=== PATIENT | female | born 1975 | race Caucasian/White ===

== ENCOUNTER 2017-04-02 20:34 | Observation (INO) ==
--- NOTE | 2017-04-02 21:24 | Emergency Department Note ---
Disposition Clinical Impression: Chest pain Qualifiers: Chest pain type: unspecified Qualified Code(s): R07.9 - Chest pain, unspecified Dyspnea Qualifiers: Dyspnea type: unspecified Qualified Code(s): R06.00 - Dyspnea, unspecified Disposition: Admitted As Inpatient Condition: Good Referrals: Melissa Swift DO [Primary Care Provider] - Forms: ED Satisfaction Letter Time of Disposition: 23:20 Chest Pain HPI - General Chief Complaint: ED Chest Pain Stated Complaint: Chest Pain Time Seen by Provider: 04/02/17 21:12 Source: patient Mode of arrival: ambulatory Limitations: no limitations Vital Signs Reviewed: Yes Nursing Notes Reviewed: Yes - History of Present Illness HPI Narrative: Patient is a 41-year-old female with past medical history of NM, 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 She presents today due to chest pain, nasal congestion, cough, shortness of breath. She also had 1 episode of nonbloody, non-bilious vomiting prior to arrival. She states that the chest discomfort is in the center of her chest and left- sided as well. Describes it as a dull ache that is worse with coughing, worse with deep inspiration. Denies any known fevers, abdominal discomfort, hematuria , dysuria, vaginal bleeding or discharge. She does note mild rash/redness of the left calf over the past couple days that has since resolved. Denies any calf pain or any swelling of the lower extremities. Denies any history of blood clots or pulmonary emboli. Severity scale (1-10): 8 - Related Data Previous Rx's Medication Instructions Recorded HYDROcodone/Acet 5/325 mg [[place] 1 - 2 tab PO Q6H PRN #10 tab 03/01/17 5-325 mg] Allergies Allergy/AdvReac Type Severity Reaction Status Date / Time aspirin Allergy See Verified 03/01/17 21:13 Comments Penicillins Allergy See Verified 03/01/17 21:13 Comments All systems ED: reviewed and negative except as stated. Constitutional: Denies: fever ENT ED: Reports: congestion. Denies: throat pain, dysphagia Cardiovascular: Reports: chest pain Respiratory: Reports: cough, dyspnea Gastrointestinal: Reports: nausea, vomiting. Denies: abdominal pain, diarrhea, constipation, hematemesis, melena, hematochezia Chest Pain PMH - Past Medical History Medical history: Reports: diabetes, hypertension, myocardial infarction, thyroid disease Surgical history: Reports: non-contributory Psychiatric history: Reports: no psych history - Social History Smoking Status: Current every day smoker Alcohol use: Reports: occasionally Drug use: Reports: none Physical Exam - General Limitations: no limitations General appearance: alert, in no apparent distress - Head Head exam: atraumatic, normocephalic, normal inspection - Eye Eye exam: Present: normal appearance, PERRL, EOMI - ENT ENT exam: normal exam, normal oropharynx, mucous membranes moist - Neck Neck exam: Present: normal inspection, full ROM, trachea midline - Chest Chest inspection: Present: normal inspection, symmetric chest wall rise - Respiratory Respiratory exam: Present: normal lung sounds bilaterally. Absent: respiratory distress, wheezes, stridor, accessory muscle use, prolonged expiratory phase - Cardiovascular Cardiovascular exam: Present: regular rate, normal rhythm, normal heart sounds - Abdominal Exam Abdominal exam: Present: soft, Non-Tender. Absent: tenderness, distention, guarding, rebound, rigidity - Extremities Exam Extremities exam: Present: normal inspection, full ROM. Absent: tenderness, pedal edema, calf tenderness - Neurological Exam Neurological exam: Present: alert, oriented X3. Absent: motor sensory deficit - Psychiatric Psychiatric exam: Present: normal affect, normal mood - Skin Skin exam: Present: warm, dry, intact, normal color. Absent: rash Course Course Narrative: Elevated blood pressure reading on presentation. We will recheck throughout stay. Otherwise, the rest of the vitals were within normal limits on room air. Physical exam shows clear lungs, heart regular rate and rhythm, abdomen soft and nontender. Patient does sound nasally congested for the rest of HEENT exam is within normal limits. Basic blood work ordered including a troponin. EKG shows normal sinus rhythm with a right bundle branch block. She also has ST depression in V3 through V6. She has S1, Q3, T3 formation on EKG. Due to the pleuritic type chest pain, history of calf redness, and abnormal EKG, will obtain a d-dimer. If negative, can rule out PE. Otherwise, EKG shows no acute ST elevation. Chest x-ray negative for any acute cardiopulmonary process. 23:16 d-dimer negative. Troponin negative. Nitroglycerin trial took her pain from an 8 down to 3. Due to response to nitroglycerin, abnormal EKG changes, we will admit the patient for chest pain rule out. We will consult cardiology, will discuss starting a heparin drip on her. We will admit to the hospitalist for further care. 23:[address] Castillo, he agreed with starting patient on heparin. This has been ordered. No other recs at this time. Consult order placed. Chest X-Ray 04/02/17 20:39 IMPRESSION: Clear lungs. D/ / Josh Hagen MD / Josh Hagen MD Interpreting Provider: Josh Hagen MD Vital Signs Temperature 97.7 F 04/02/17 20:36 Pulse Rate 93 04/02/17 20:36 Respiratory Rate 20 04/02/17 20:36 Blood Pressure 175/119 04/02/17 20:36 O2 Sat by Pulse Oximetry 98 04/02/17 20:36 Temperature 97.7 F 04/02/17 20:36 Pulse Rate 79 04/02/17 23:14 Respiratory Rate 16 04/02/17 22:42 Blood Pressure 126/76 04/02/17 23:14 O2 Sat by Pulse Oximetry 94 04/02/17 23:14 Oxygen Delivery Oxygen Delivery Room Air Chest Pain - MDM Narrative Medical decision making narrative: Elevated blood pressure reading on presentation. We will recheck throughout stay. Otherwise, the rest of the vitals were within normal limits on room air. Physical exam shows clear lungs, heart regular rate and rhythm, abdomen soft and nontender. Patient does sound nasally congested for the rest of HEENT exam is within normal limits. Basic blood work ordered including a troponin. EKG shows normal sinus rhythm with a right bundle branch block. She also has ST depression in V3 through V6. She has S1, Q3, T3 formation on EKG. Due to the pleuritic type chest pain, history of calf redness, and abnormal EKG, will obtain a d-dimer. If negative, can rule out PE. Otherwise, EKG shows no acute ST elevation. Chest x-ray negative for any acute cardiopulmonary process. 23:16 d-dimer negative. Troponin negative. Nitroglycerin trial took her pain from an 8 down to 3. Due to response to nitroglycerin, abnormal EKG changes, we will admit the patient for chest pain rule out. We will consult cardiology, will discuss starting a heparin drip on her. We will admit to the hospitalist for further care. 23:[address] Castillo, he agreed with starting patient on heparin. This has been ordered. No other recs at this time. Consult order placed. - Medical Records Medical records reviewed: Yes I reviewed the patient's medical records. - Lab Data Lab results reviewed: Yes I reviewed the patient's lab results. Result diagrams: 04/02/17 21:45 04/02/17 21:45 Lab Results 04/02/17 04/02/17 04/02/17 Range/Units 21:45 21:45 21:45 WBC 9.9 (4.3-11.1) K/mcL RBC 4.98 H (3.82-4.97) M/mcL Hgb 15.0 (11.5-15.4) g/dL Hct 45.3 H (35.3-44.9) % MCV 91.0 (83.0-100.0) fL MCH 30.1 (28.0-33.3) pg MCHC 33.1 (31.6-35.5) g/dL RDW 13.8 (11.5-14.5) % Plt Count 255 (140-400) K/mcL MPV 10.6 (9.4-12.4) fL Immature Gran % 0.6 (0-4) % Seg Neutrophils % 55.6 % Lymphocytes % 32.7 % Monocytes % 7.7 % Eosinophils % 2.7 % Basophils % 0.7 % Neutrophils # 5.5 (1.6-8.9) K/mcL Lymphocytes # 3.2 (0.6-4.6) K/mcL Monocytes # 0.8 (0.0-1.3) K/mcL Eosinophils # 0.3 (0.0-0.6) K/mcL Basophils # 0.1 (0.0-0.2) K/mcL PT 10.8 (9.4-12.1) Seconds INR 1.0 APTT 30.1 (26.0-36.0) Seconds D-Dimer 365 (0-500) ng/mLFEU Sodium 137 (136-145) mEq/L Potassium 3.6 (3.5-5.1) mEq/L Chloride 105 (98-107) mEq/L Carbon Dioxide 27 (23-29) mEq/L BUN 16 (6-20) mg/dL Creatinine 0.71 (0.60-1.20) mg/dL Est GFR ( Amer) > 60 (> 60) Est GFR (Non-Af Amer) > 60 (> 60) BUN/Creatinine Ratio 23 (6-26) Glucose 126 H (70-105) mg/dL Calculated Osmolality 287 (280-300) Calcium 9.0 (8.6-10.3) mg/dL Troponin I (< 0.04) ng/mL 04/02/17 Range/Units 21:45 WBC (4.3-11.1) K/mcL RBC (3.82-4.97) M/mcL Hgb (11.5-15.4) g/dL Hct (35.3-44.9) % MCV (83.0-100.0) fL MCH (28.0-33.3) pg MCHC (31.6-35.5) g/dL RDW (11.5-14.5) % Plt Count (140-400) K/mcL MPV (9.4-12.4) fL Immature Gran % (0-4) % Seg Neutrophils % % Lymphocytes % % Monocytes % % Eosinophils % % Basophils % % Neutrophils # (1.6-8.9) K/mcL Lymphocytes # (0.6-4.6) K/mcL Monocytes # (0.0-1.3) K/mcL Eosinophils # (0.0-0.6) K/mcL Basophils # (0.0-0.2) K/mcL PT (9.4-12.1) Seconds INR APTT (26.0-36.0) Seconds D-Dimer (0-500) ng/mLFEU Sodium (136-145) mEq/L Potassium (3.5-5.1) mEq/L Chloride (98-107) mEq/L Carbon Dioxide (23-29) mEq/L BUN (6-20) mg/dL Creatinine (0.60-1.20) mg/dL Est GFR ( Amer) (> 60) Est GFR (Non-Af Amer) (> 60) BUN/Creatinine Ratio (6-26) Glucose (70-105) mg/dL Calculated Osmolality (280-300) Calcium (8.6-10.3) mg/dL Troponin I < 0.03 (< 0.04) ng/mL - Radiology Data Radiology results reviewed: Yes I reviewed the patient's radiology results. Chest X-Ray 04/02/17 20:39 IMPRESSION: Clear lungs. D/ / Josh Hagen MD / Josh Hagen MD Interpreting Provider: Josh Hagen MD - EKG Data EKG attestation: Yes I reviewed and interpreted this EKG. EKG results narrative: 04/02/2017 20:42. Normal sinus rhythm. Rate 95. FL 129. QRS 128. QTC 444. Right bundle branch block. ST depression in V3 through V6. S1, Q3, T3 formation present. Normal axis. S.B.A.RJena - S.Ivanna Situation: Demographics, MOA Background: Presenting Complaint, Relevant PMH, Meds, & Allergies Assessment: Vital Signs, Course and respsone to treatment, Exam Concerns, Patient/Family Expectation, Pertinant Lab Results, Outstanding Labs Recommendation: Barrier(s) to disposition, Recommendation based on pending studies, treatments, or consults S.B.A.RJena Report Given to: Dr. Keenan Lizarraga Repor Time: 23:20 Attestation Statement - Attestation Attestation: I examined this patient and my medical decision-making was reviewed with the Resident Physician. I agree with the documented findings, disposition and treatment plan as described except to the extent set forth below. Patient presents to the ED with a chief complaint of chest pain. Onset 4 hours prior to arrival. States the left side and radiates to the center of her chest. She states she has a history of an NM in the past but does not have any stents. She barely had an elevated troponin and had a clean heart catheter at that time. It was 8 years ago in [place]. She does have high blood pressure. States her blood pressure is higher than normal for her tonight. Examination she is in no acute distress heart regular and lungs are clear. Plan. Cardiac workup. EKG has some mild ST depressions. There is no old for comparison. Nitroglycerin trial. Likely admission. Patient states she has anaphylactic allergy to aspirin. 40 minutes of critical care exclusive of separately billable procedures.
[2017-04-02 21:54] LABS: Basophils # 0.1 K/mcL (0.0-0.2); Basophils % 0.7 %; Eosinophils # 0.3 K/mcL (0.0-0.6); Eosinophils % 2.7 %; Hematocrit 45.3 % (35.3-44.9); Immature Granulocytes % 0.6 % (0-4); Lymphocytes # 3.2 K/mcL (0.6-4.6); Lymphocytes % 32.7 %; Mean Corpuscular HGB Conc 33.1 g/dL (31.6-35.5); Mean Corpuscular Hemoglobin 30.1 pg (28.0-33.3); Mean Platelet Volume 10.6 fL (9.4-12.4); Monocytes # 0.8 K/mcL (0.0-1.3); Monocytes % 7.7 %; Neutrophils # 5.5 K/mcL (1.6-8.9); Platelet Count 255 K/mcL (140-400); Red Blood Count 4.98 M/mcL (3.82-4.97); Red Cell Distribution Width 13.8 % (11.5-14.5); Segmented Neutrophils % 55.6 %
[2017-04-02 22:02] LABS: Prothrombin Time 10.8 Seconds (9.4-12.1)
[2017-04-02 22:04] LABS: Activated Partial Thrombo Time 30.1 Seconds (26.0-36.0)
[2017-04-02 22:15] LABS: BUN/Creatinine Ratio 23 (6-26); Blood Urea Nitrogen 16 mg/dL (6-20); Carbon Dioxide 27 mEq/L (23-29); Chloride 105 mEq/L (98-107); Glucose 126 mg/dL (70-105); Osmolality,Calculated 287 (280-300); Potassium 3.6 mEq/L (3.5-5.1); Sodium 137 mEq/L (136-145); eGFR For African Americans > 60 (> 60); eGFR For Non-African Americans > 60 (> 60)
[2017-04-02] MEDS ORDERED: Nitroglycerin 0.4 MG TAB.SUBL SL ONE (22:24)
[2017-04-02] MEDS: Nitroglycerin 0.4 MG TAB.SUBL SL PRN ×3 (22:25→22:44)
[2017-04-02] MEDS ORDERED: Heparin 25,000 UNIT/500 ML D5W 25,000 UNIT/500 ML BAG IVC SCH (23:30)
[2017-04-02] MEDS ORDERED: *HR* Heparin 5,000 UNIT/ML VIAL IVP PRN ×2 (23:30)
[2017-04-02] MEDS ORDERED: *HR* Heparin 5,000 UNIT/ML VIAL IVP ONE (23:30)
[2017-04-03] MEDS ORDERED: Naloxone 0.4 MG/ML INJ IVP PRN (00:59)
[2017-04-03] MEDS ORDERED: Ringers Solution, Lactated 1,000 ML IVC SCH (01:00)
[2017-04-03] MEDS ORDERED: Nitroglycerin 1 INCH/GM PACKET TP ONE (01:03)
--- NOTE | 2017-04-03 01:05 | Internal Med History&Physical ---
Date of Encounter: 04/03/17 Time of Encounter: 01:15 Assessment and Plan (1) Acute bronchitis Current visit: Yes Status: Acute Iv steroids, IV antibiotics, duonebs send RVP nicotine patch Qualifiers: Bronchitis organism: other organism Qualified Code(s): J20.8 - Acute bronchitis due to other specified organisms (2) Chest pain Current visit: Yes Status: Acute trend trop continue heparin gtt from the ED as d/w cards TTE Qualifiers: Chest pain type: other chest pain Qualified Code(s): R07.89 - Other chest pain; R07.8 - Other chest pain (3) DMII (diabetes mellitus, type 2) Current visit: Yes Status: Acute ISS , Hold metformin Qualifiers: Diabetes mellitus complication status: without complication Qualified Code( s): E11.9 - Type 2 diabetes mellitus without complications (4) Hypothyroid Current visit: Yes Status: Acute continue med Qualifiers: Hypothyroidism type: acquired Qualified Code(s): E03.9 - Hypothyroidism, unspecified Internal Medicine - H&P: HPI Chief complaint: tired/fatigue like the cold and Chest pain History of present illness: Ms. Kirkland is a 41 year old female who presents with acute bronchitis and CP eval. She has DMII on metformin, hypothyroid on synthroid, reported hx of small MA 8 years ago and a prior [facility] w/o intervention - she does not recall being on heart med/anti-plt and appears to have a limited history. She smokes 1/2 PPD and likely has COPD She presents with a few days hx of feeling tired/fatigue like the she has the cold that was associated with left sided onset of chest pain this past evening 3 hours prior to arrival. CP started while she was laying down watching TV. Localized the the left chest with radiation to the midline. Rate 8/10, described as constricting in quality, rate 8/10. Improved with nitro to 2/10. EKG reviewed personally with rate 95, RBBB, no prior to compare to XR/XR chest 1V portable IMPRESSION: Clear lungs. Past Med Surg Social Fam HX - Past Medical History Medical history: diabetes, hypertension, myocardial infarction, thyroid disease Psychiatric history: no psych history - Past Surgical History Surgical History: non-contributory - Social History Smoking Status: Current every day smoker Smokeless Tobacco Status: No Alcohol use: occasionally Drug use: none - Additional Family History Additional family history: HTN Internal Medicine - H&P: Meds HYDROcodone/Acet 5/325 mg [[place] 5-325 mg] 1 - 2 tab PO Q6H PRN #10 tab [Rx] Levothyroxine [Synthroid] 50 mcg PO DAILY 04/03/17 [History] Lisinopril [Zestril] 04/03/17 [History] Lisinopril [Zestril] 25 mg PO DAILY 04/03/17 [History] 3 Allergy/AdvReac Type Severity Reaction Status Date / Time aspirin Allergy See Verified 03/01/17 21:13 Comments Penicillins Allergy See Verified 03/01/17 21:13 Comments All Systems PM: A 10-system review of systems was performed and is negative for pertinent findings except as documented above in the HPI. Review of systems: ROS 14 point review of systems reviewed as best as possible given presentation. Pertinent positive or negative as per HPI or otherwise reviewed as negative - Constitutional Vitals: Temp Pulse Resp BP Pulse Ox 97.7 F 85 16 131/97 94 04/02/17 20:36 04/02/17 23:55 04/03/17 00:38 04/03/17 00:38 04/02/17 23:55 Exam: General - AAO x 3 Psych - Appropriate affect/speech. No agitation Eyes - SELVIN. Eye lids intact. No scleral icterus Neuro - No gross peripheral or central neuro deficits on inspection Heart - Sinus. RRR. S1 and S2 present. No added HS/murmurs appreciated. No elevated JVD appreciated. Lung - Adequate air entry b/l, diffuse wheezes prominent GI - Soft, non-tender. No hepatosplenomegaly/ascites. BS+ - No CVA/suprapubic tenderness or palpable bladder distension Skin - Intact. No rash/petechiae/ecchymosis. Warm extremities Internal Med - H&P Results - Labs CBC & Chem 7: 04/02/17 21:45 04/02/17 21:45
[2017-04-03] MEDS ORDERED: *HR* Dextrose 50 % in Water (Syg) 50 ML SYRINGE IVP PRN (01:09)
[2017-04-03] MEDS ORDERED: D5% in Water 1,000 ML IVC PRN (01:09)
[2017-04-03] MEDS ORDERED: Dextrose Gel 15 GM/37.5 ML TUBE PO PRN ×2 (01:09)
[2017-04-03] MEDS ORDERED: Insulin LISPRO 300 UNITS/3 ML VIAL SQ SCH (01:15)
[2017-04-03 01:37] LABS: Basophils # 0.1 K/mcL (0.0-0.2); Basophils % 0.8 %; Eosinophils # 0.3 K/mcL (0.0-0.6); Eosinophils % 2.9 %; Hematocrit 45.9 % (35.3-44.9); Hemoglobin 14.8 g/dL (11.5-15.4); Immature Granulocytes % 0.4 % (0-4); Lymphocytes # 3.6 K/mcL (0.6-4.6); Lymphocytes % 36.8 %; Mean Corpuscular HGB Conc 32.2 g/dL (31.6-35.5); Mean Corpuscular Hemoglobin 29.6 pg (28.0-33.3); Mean Corpuscular Volume 91.8 fL (83.0-100.0); Mean Platelet Volume 10.6 fL (9.4-12.4); Monocytes # 0.6 K/mcL (0.0-1.3); Monocytes % 6.5 %; Neutrophils # 5.1 K/mcL (1.6-8.9); Platelet Count 244 K/mcL (140-400); Red Cell Distribution Width 13.8 % (11.5-14.5); Segmented Neutrophils % 52.6 %
[2017-04-03] MEDS ORDERED: Azithromycin 500 MG in D5% in Water 250 ML IVPB SCH (02:00)
[2017-04-03 02:02] LABS: BUN/Creatinine Ratio 23 (6-26); Blood Urea Nitrogen 16 mg/dL (6-20); Calcium 8.9 mg/dL (8.6-10.3); Carbon Dioxide 27 mEq/L (23-29); Chloride 106 mEq/L (98-107); Glucose 120 mg/dL (70-105); Magnesium 1.9 mg/dL (1.6-2.6); Osmolality,Calculated 288 (280-300); Potassium 3.6 mEq/L (3.5-5.1); Sodium 138 mEq/L (136-145); eGFR For African Americans > 60 (> 60); eGFR For Non-African Americans > 60 (> 60)
[2017-04-03] MEDS ORDERED: Nicotine 14 MG PATCH.TD24 TD SCH (03:00)
[2017-04-03] MEDS: Nitroglycerin 0.4 MG TAB.SUBL SL PRN ×2 (04:16→05:12)
[2017-04-03] MEDS: MethylPREDNISolone 40 MG/ML VIAL IVP SCH ×2 (05:24→12:45)
[2017-04-03] MEDS ORDERED: Ondansetron 4 MG/2 ML VIAL IVP PRN (05:32)
[2017-04-03] MEDS: Ipratropium/Albuterol Neb 3 ML IH SCH ×3 (06:01→16:12)
[2017-04-03 08:01] VITALS: BP 140/91
[2017-04-03] MEDS ORDERED: Acetaminophen 325 MG TABLET PO PRN (08:31)
[2017-04-03] MEDS: Insulin LISPRO 300 UNITS/3 ML VIAL SQ SCH ×2 (08:38→12:51)
[2017-04-03 09:10] LABS: Adenovirus Not Detected (Not Detect); Bordetella Pertussis Not Detected (Not Detect); Chlamydophila pneumoniae Not Detected (Not Detect); Coronavirus 229E Not Detected (Not Detect); Coronavirus HKU1 Not Detected (Not Detect); Coronavirus NL63 Not Detected (Not Detect); Coronavirus OC43 Not Detected (Not Detect); Human Metapneumovirus Not Detected (Not Detect); Human Rhinovirus/Enterovirus Not Detected (Not Detect); Influenza A Subtype 2009 H1 Not Detected (Not Detect); Influenza A Untypeable Not Detected (Not Detect); Influenza B Not Detected (Not Detect); Mycoplasma pneumoniae Not Detected (Not Detect); Parainfluenza Virus 1 Not Detected (Not Detect); Parainfluenza Virus 2 Not Detected (Not Detect); Parainfluenza Virus 3 Not Detected (Not Detect); Parainfluenza Virus 4 Not Detected (Not Detect); Respiratory Syncytial Virus Not Detected (Not Detect)
[2017-04-03] MEDS ORDERED: Regadenoson 0.4 MG/5 ML SYRINGE IVP ONE (09:47)
[2017-04-03] MEDS ORDERED: *HR* Morphine 2 MG/ML SYRINGE IVP ONE (11:40)
--- NOTE | 2017-04-03 13:01 | Cardiology Consult Note ---
Addendum entered and electronically signed by Haroon Myers CNP 04/03/17 13:16 : Patient also reports aspirin allergy. She has severe swelling with asa. WIll hold off on aspirin. Start statin and bb. Addendum entered and electronically signed by Haroon Myers CNP 04/03/17 13:13 : I was notified that patient completed resting part of stress. SHe is a two day stress due to NTG given this morning. Patient upset due to no one to care for her dog. She would like to go home and complete stress early next week. I will schedule her with me to f/u. Original Note: Date of Encounter: 04/03/17 Time of Encounter: 12:55 Assessment and Plan (1) Chest pain Current Visit: Yes Status: Acute Presents with atypical chest pain. Pain increases with deep inspiration and cough. Currently being treated for bronchitis. Troponin negative. EKG shows SR with RBBB. Cardiac risk factors include HTN and tobacco use. Reports history of [place] with negative LHC in 2009 at [facility]. Recommend stress test for further evaluation. Qualifiers: Chest pain type: other chest pain Qualified Code(s): R07.89 - Other chest pain; R07.8 - Other chest pain Discussion w patient/family: The assessment and plan as outlined above was discussed with the patient and/or family members who expressed understanding and agreement. All questions were answered. Thank you for involving us in the care of your patient. Please call with any questions. History of Present Illness Consult date: 04/03/17 Requesting physician: Marcia Marinelli Consult reason: Chest pain Chief complaint: Chest pain History of present illness: Ms. Kirkland is a 41 year old female with a past medical history of myocardial infarction in 2010, HTN, SVT ablation, hypothyroidism, tobacco abuse, and COPD. She presented to the ED last night with several hours of chest discomfort and cough. Her pain is described as a sharp stabbing pain radiating to her left shoulder. The pain increases with movement, deep breaths, and cough. No significant improvement in her pain with NTG. Initial cardiac work-up was negative and she was scheduled for a stress test. Cardiology asked to see her prior to her stress test due to persistent chest pain. She states that her pain is not like her previous [place]. She denies SOB or palpitations. Past Med Surg Social Fam HX - Past Medical History Attestation: Yes The following information was validated with the patient. Medical history: diabetes, hypertension, myocardial infarction, thyroid disease Psychiatric history: no psych history - Past Surgical History Surgical History: non-contributory - Social History Smoking Status: Current every day smoker Packs per day: 0.5 Smokeless Tobacco Status: No Alcohol use: occasionally Drug use: none - Family History Mother Adopted: [place]: DARREN Age: 64 Family Member Ethnicity: Non- Living Status: Still Living Hx Family Cardiac Disorders: Yes Hx Family Respiratory Disorders: Yes Hx Family Cancer: Yes (CERVICAL) Hx Family GI Disorders: No Hx Family Genitourinary Disorders: No Hx Family Endocrine Disorder: Yes (THYROID) Hx Family Musculoskeletal Disorders: No Hx Family Neuromuscular Disorders: No Hx Family Neurologic Disorders: Yes (STROKE) Hx Family HEENT Disorders: No Hx Family Autoimmune Disorders: No Hx Family Reproductive Disorders: No Hx Family Psychosocial Disorders: Yes (BRAIN SURGERY) Hx Family Medical Disorders: No Medications and Allergies HYDROcodone/Acet 5/325 mg [[place] 5-325 mg] 1 - 2 tab PO Q6H PRN #10 tab [Rx] Levothyroxine [Synthroid] 50 mcg PO DAILY 04/03/17 [History] Lisinopril [Zestril] 04/03/17 [History] Lisinopril [Zestril] 25 mg PO DAILY 04/03/17 [History] 3 Allergy/AdvReac Type Severity Reaction Status Date / Time aspirin Allergy See Verified 03/01/17 21:13 Comments Penicillins Allergy See Verified 03/01/17 21:13 Comments All Systems Review: A 10-system review of systems was performed and is negative for pertinent findings except as documented above in the HPI. Physical Examination General: Conversant, No Apparent Distress HEENT: Atraumatic, Normocephaly, Mucus Membranes Moist Neck: No JVD, Normal carotid pulses Cardiac: Reg Rate and Rhythm, Normal S1 and S2, No Murmur Lungs: Normal Breath Sounds, No Wheeze, Rales, Rhonchi Neuro: Alert and responsive, No focal deficits noted Abdomen: Soft, Non-Tender Skin: No rashes noted on visualized skin Musculoskeletal: Other (Reproducible chest wall pain) Extremities: No Clubbing, No Cyanosis, No Edema, Normal Pulses Results 04/03/17 01:16 04/03/17 01:16 Lab Results 04/03/17 04/03/17 04/03/17 01:16 01:16 01:16 WBC 9.8 Hgb 14.8 Hct 45.9 H Plt Count 244 APTT Sodium 138 Potassium 3.6 Chloride 106 Carbon Dioxide 27 BUN 16 Creatinine 0.69 Glucose 120 H Calcium 8.9 Magnesium 1.9 Troponin I < 0.03 04/03/17 04/03/17 07:37 07:37 WBC Hgb Hct Plt Count APTT 61.3 H D Sodium Potassium Chloride Carbon Dioxide BUN Creatinine Glucose Calcium Magnesium Troponin I < 0.03 - Imaging and Cardiology Stress Test: pending - EKG Interpretation EKG results cardiology: personally reviewed Consult Discharge Plan - Plan Referrals: Melissa Swift DO [Primary Care Provider] -
--- NOTE | 2017-04-03 13:37 | Discharge Summary ---
Date of Encounter: 04/03/17 Time of Encounter: 13:33 - Discharge Diagnosis (1) Acute bronchitis Priority: Primary Status: Acute Comments: Patient states her cough is much improved. We will send her home on some Tessalon Perles and a prednisone taper, ventolin inhaler, and a Z-Tony Qualifiers: Bronchitis organism: other organism Qualified Code(s): J20.8 - Acute bronchitis due to other specified organisms (2) Chest pain Priority: Primary Status: Acute Comments: Cadiology saw the patient and wrote the following recommendations Presents with atypical chest pain. Pain increases with deep inspiration and cough. Currently being treated for bronchitis. Troponin negative. EKG shows SR with RBBB. Cardiac risk factors include HTN and tobacco use. Reports history of NC with negative LHC in 2009 at OSH. Recommend stress test for further evaluation. The patient does not want to stay for a two-step stress test Discussed with cardiology and they will see her as an outpatient and orchestrate further care She is to return to the ED if a change in her chest pain We will follow-up with her PCP within the week Verbalized understanding of these instructions Qualifiers: Chest pain type: other chest pain Qualified Code(s): R07.89 - Other chest pain; R07.8 - Other chest pain (3) DMII (diabetes mellitus, type 2) Priority: Secondary Status: Acute Comments: Continue home medications Qualifiers: Diabetes mellitus complication status: without complication Diabetes mellitus long-term insulin use: without long-term use Qualified Code(s): E11.9 - Type 2 diabetes mellitus without complications (4) Dyspnea Priority: Primary Status: Acute Comments: Her shortness of breath has resolved on room air Qualifiers: Dyspnea type: unspecified Qualified Code(s): R06.00 - Dyspnea, unspecified (5) Hypothyroid Priority: Secondary Status: Acute Comments: Medications follow up with primary care physician Qualifiers: Hypothyroidism type: acquired Qualified Code(s): E03.9 - Hypothyroidism, unspecified (6) Tobacco abuse Priority: Primary Status: Acute Comments: Given prescription for NicoDerm patch recommend cessation - Discharge Medications Prescriptions: Albuterol Sulfate [Ventolin Hfa] 18 gm IH Q6HR PRN #1 hfa.aer.ad PRN Reason: Wheezing Azithromycin [Azithromycin 6-Tab Pack] 250 mg PO PER PKG DI #6 tab Benzonatate [Tessalon] 100 mg PO TID 10 Days #30 capsule Esomeprazole Magnesium [Nexium 24Hr] 20 mg PO DAILY #30 tablet. Nicotine Patch [Nicoderm] 14 mg TD DAILY 7 Days #1 patch.td24 PredniSONE [Deltasone] 40 mg PO DAILY 4 Days #8 tablet Home Medications: HYDROcodone/Acet 5/325 mg [[place] 5-325 mg] 1 - 2 tab PO Q6H PRN #10 tab [Rx] Albuterol Sulfate [Ventolin Hfa] 18 gm IH Q6HR PRN #1 hfa.aer.ad 04/03/17 [Rx] Azithromycin [Azithromycin 6-Tab Pack] 250 mg PO PER PKG DI #6 tab 04/03/17 [Rx] Benzonatate [Tessalon] 100 mg PO TID 10 Days #30 capsule 04/03/17 [Rx] Esomeprazole Magnesium [Nexium 24Hr] 20 mg PO DAILY #30 tablet. 04/03/17 [Rx] Levothyroxine [Synthroid] 50 mcg PO DAILY 04/03/17 [History] Lisinopril [Zestril] 04/03/17 [History] Lisinopril [Zestril] 25 mg PO DAILY 04/03/17 [History] Nicotine Patch [Nicoderm] 14 mg TD DAILY 7 Days #1 patch.td24 04/03/17 [Rx] PredniSONE [Deltasone] 40 mg PO DAILY 4 Days #8 tablet 04/03/17 [Rx] Allergies/Adverse Reactions: 3 Allergy/AdvReac Type Severity Reaction Status Date / Time aspirin Allergy See Verified 03/01/17 21:13 Comments Penicillins Allergy See Verified 03/01/17 21:13 Comments Procedures/tests Complete & Pending: Procedures Performed prior 72 hours Category Date Time Status NM ibeth perf SPECT multi [NM] Routine Exams 04/03/17 08:47 Ordered EKG [ECG 12 lead ECG] [ECG] Stat Y 04/03/17 11:27 Ordered EV echocardiogram Routine Y 04/03/17 01:02 Completed SP pharm nuclear stress Routine Y 04/03/17 08:46 Ordered Date of admission: 04/03/17 00:59 Primary care physician: Fabien Erickson Discharging clinician: Marcia Marinelli Anticipated date of discharge: 02/10/18 - Patient Status Disposition: Home, Self-Care Condition: Good Functional capacity at discharge: independent ambulation Overall status at discharge: patient is progressing back to baseline - Discharge Instructions Follow Up With: Melissa Swift DO [Primary Care Provider] - Additional Instructions: Patient is to follow up with cardiology as directed Follow-up with PCP in the next few days - Diet and Activity Activity: resume usual activities as tolerated Diet: advance to your usual diet Interval History: Patient is pain-free at this time and states she has the left-sided chest pain with cough or when pressed on her chest wall. She states the pain she is experiencing is the same as when I pushed on her chest wall. She also is complaining of some acid burning in the back of her throat. She does not want to stay for a two-step stress test. Discussed with cardiology and she will have close follow-up with him within the next 2 weeks and will follow-up with her primary care physician within a few days. Verbalized understanding of these instructions. Also discussed tobacco cessation at great length and we will provided NicoDerm patch should she decide to use that. Hospital course: Ms. Kirkland is a 41 year old female who presented to emergency room with chest pain. Patient has been on and off tearful this morning. She complained of chest pain and was to have a stress test. Troponins are negative. EKG with no ST changes. Cardiology saw the patient. The patient stated she could not stay till Wednesday for a two-step stress test because she has a dog at home and no one to let it out. Discussed with cardiology,the pain is reproducible in her chest wall, she will follow-up with him in the office in about 2 weeks. She also has significant symptoms of GERD. We will discharge with some Nexium and she is to have close follow-up with her primary care physician. She has verbalized understanding of these plans. She is having intermittent cough so will send home with some Kelly Wallace - Time Spent with Patient Total time spent providing and/or coordinating discharge services: Less than 30 minutes - Constitutional Vitals: Temp Pulse Resp BP Pulse Ox 97.7 F 91 16 140/91 94 04/03/17 07:58 04/03/17 07:58 04/03/17 07:58 04/03/17 07:58 04/03/17 07:58 General appearance: Present: cooperative, A&O X 3, pleasant, no acute distress, answers questions appropriately - Head Head exam: Present: atraumatic, normocephalic - Eye Eye exam: Present: PERRL, conjuntiva pink, sclera anicteric Pupils: Present: PERRL - Neck Neck exam general surgery: Present: supple, trachea midline. Absent: lymphadenopathy - Respiratory Respiratory exam: Present: CTAB. Absent: accessory muscle use, rales, rhonchi, wheezes Additional comments: Intermittent cough which reproduces her chest pain, is also reproducible with palpation over the area on her left breast - Cardiovascular Cardiovascular exam: Present: RRR, +S1, +S2. Absent: diastolic murmur, gallop, rubs, systolic murmur Additional comments: Chest pain patient is experiencing was reproducible to palpation over the left breast/chest wall - GI/Abdominal GI/Abdominal exam: Present: normal bowel sounds, soft, no peritoneal signs. Absent: distended, tenderness Additional comments: Patient complained of burning in the back of her throat. - Extremities Exam Extremities exam: Present: warm, radial pulses palpable and symmetrical. Absent : calf tenderness, cyanotic, pedal edema - Neurological Exam Neurological exam: Present: CN II-XII intact, oriented X3, no focal deficits. Absent: pronater drift, facial droop, speech deficit - Skin Skin exam: Present: dry, intact, warm
--- NOTE | 2017-04-05 07:40 | Electrocardiograph Report ---
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
--- NOTE | 2017-04-05 16:20 | Electrocardiograph Report ---
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
== END 2017-04-03 14:30 | disposition home or self-care (01) ==
LOC: 3BNU 20:34 → EMEROO 20:34 → 3BNU 04-03 01:34
PROVIDERS: ADMIT Family Medicine; ATTEND Registered Nurse

== ENCOUNTER 2017-10-27 18:50 | Observation (INO) ==
[2017-10-27 20:07] LABS: Basophils # 0.1 K/mcL (0.0-0.2); Basophils % 0.8 %; Eosinophils # 0.3 K/mcL (0.0-0.6); Eosinophils % 2.6 %; Hematocrit 46.3 % (35.3-44.9); Hemoglobin 15.3 g/dL (11.5-15.4); Immature Granulocytes % 0.5 % (0-4); Lymphocytes # 2.6 K/mcL (0.6-4.6); Lymphocytes % 23.6 %; Mean Corpuscular Hemoglobin 30.1 pg (28.0-33.3); Mean Corpuscular Volume 91.1 fL (83.0-100.0); Mean Platelet Volume 10.6 fL (9.4-12.4); Monocytes # 0.8 K/mcL (0.0-1.3); Monocytes % 7.7 %; Platelet Count 248 K/mcL (140-400); Red Blood Count 5.08 M/mcL (3.82-4.97); Red Cell Distribution Width 13.6 % (11.5-14.5); Segmented Neutrophils % 64.8 %
[2017-10-27 20:25] LABS: Troponin I < 0.03 ng/mL (< 0.04)
[2017-10-27 20:26] LABS: BUN/Creatinine Ratio 13 (6-26); Blood Urea Nitrogen 9 mg/dL (6-20); Calcium 9.3 mg/dL (8.6-10.3); Carbon Dioxide 24 mEq/L (23-29); Chloride 103 mEq/L (98-107); Glucose 182 mg/dL (70-105); Osmolality,Calculated 289 (280-300); Potassium 3.5 mEq/L (3.5-5.1); Sodium 138 mEq/L (136-145); eGFR For Non-African Americans > 60 (> 60)
[2017-10-27] MEDS ORDERED: 0.9 % Sodium Chloride 1,000 ML IVC ONE (21:20)
[2017-10-27] MEDS ORDERED: Ipratropium/Albuterol Neb 3 ML IH ONE (21:20)
[2017-10-27] MEDS ORDERED: methylPREDNISolone 125 MG/2 ML VIAL IVP ONE (21:20)
[2017-10-27] MEDS ORDERED: Levofloxacin 500 MG/100 ML 500 MG/100 ML BAG IVPB ONE (21:22)
--- NOTE | 2017-10-27 21:48 | Emergency Department Note ---
Disposition Clinical Impression: Smoking Acute bronchitis Qualifiers: Bronchitis organism: unspecified organism Qualified Code(s): J20.9 - Acute bronchitis, unspecified Disposition: Home, Self-Care Condition: Good Instructions: Acute Bronchitis (ED) Reasons to Return/Additional Instructions: Re naveen w/ your doctor in 2-3 days; Stop smoking; admission to the hospital has been offered and declined. Your aware of the risks of your decision. You have agreed to return if worse Prescriptions: Albuterol Sulfate [Albuterol Inhaler] 2 puff IH Q4HR #1 hfa.aer.ad Levofloxacin [Levaquin] 500 mg PO DAILY #6 tablet PredniSONE [Deltasone] 20 mg PO DAILY #9 tablet Saccharomyces Boulardii [Florastor] 250 mg PO DAILY #10 capsule Referrals: Melissa Swift DO [Primary Care Provider] - Forms: ED Satisfaction Letter Time of Disposition: 23:46 SOB HPI - General Chief Complaint: ED Shortness of Breath/Dyspnea Stated Complaint: JONATHAN Time Seen by Provider: 10/27/17 20:48 Source: patient Limitations: no limitations Nursing Notes Reviewed: Yes Vital Signs Reviewed: Yes - History of Present Illness Patient is a 42-year-old female who presents to [facility] ED with a chief complaint of difficulty breathing. States her symptoms started 3 days ago. Has been gradually worsening over the last few days especially with exertion and laying down. Also states she has had upper respiratory symptoms including nasal congestion, cough. States she has some chest tightness associated with the cough. Past medical history significant for COPD and type 2 diabetes. Patient states she has not had any inhalers and has not used any for years. States she takes metformin as needed whenever her sugar happens to be high. Denies any recent fevers or chills. No nausea, vomiting, chest pain, abdominal pain, problems with urination or bowel movements. 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 Denies: chest pain, fever, wheezing, sputum production, nausea/vomiting, abdominal pain Treatment prior to arrival: none Cough present: Yes Cough Description: Involuntary Cough Frequency: Intermittent Sputum production: No Sputum Amount: None - Related Data Home oxygen amount: none Home Medications Medication Instructions Recorded Confirmed Levothyroxine [Synthroid] 50 mcg PO DAILY 04/03/17 04/03/17 Lisinopril [Zestril] 04/03/17 04/03/17 Lisinopril [Zestril] 25 mg PO DAILY 04/03/17 04/03/17 Previous Rx's Medication Instructions Recorded HYDROcodone/Acet 5/325 mg [[place] 1 - 2 tab PO Q6H PRN #10 tab 03/01/17 5-325 mg] Albuterol Sulfate [Ventolin Hfa] 18 gm IH Q6HR PRN #1 hfa.aer.ad 04/03/17 Azithromycin [Azithromycin 6-Tab 250 mg PO PER PKG DI #6 tab 04/03/17 Pack] Benzonatate [Tessalon] 100 mg PO TID 10 Days #30 capsule 04/03/17 Esomeprazole Magnesium [Nexium 20 mg PO DAILY #30 tablet.dr 04/03/17 24Hr] Nicotine Patch [Nicoderm] 14 mg TD DAILY 7 Days #1 patch.td24 04/03/17 PredniSONE [Deltasone] 40 mg PO DAILY 4 Days #8 tablet 04/03/17 Naproxen [Naprosyn] 500 mg PO BID PRN #20 tablet 07/06/17 Albuterol Sulfate [Albuterol 2 puff IH Q4HR #1 hfa.aer.ad 10/27/17 Inhaler] Levofloxacin [Levaquin] 500 mg PO DAILY #6 tablet 10/27/17 PredniSONE [Deltasone] 20 mg PO DAILY #9 tablet 10/27/17 Saccharomyces Boulardii [Florastor] 250 mg PO DAILY #10 capsule 10/27/17 Allergies Allergy/AdvReac Type Severity Reaction Status Date / Time aspirin Allergy See Verified 07/06/17 19:37 Comments Penicillins Allergy See Verified 07/06/17 19:37 Comments All systems ED: reviewed and negative except as stated. Past Medical History - Past Medical History Attestation: Yes The following information was validated with the patient. Source: patient Medical history: Reports: diabetes, hypertension, myocardial infarction, thyroid disease Surgical history: Reports: non-contributory Psychiatric history: Reports: no psych history - Social History Smoking Status: Current every day smoker Smokeless Tobacco Status: No Alcohol use: Reports: occasionally Drug use: Reports: none Physical Exam - General Limitations: no limitations General appearance: alert, in no apparent distress - Head Head exam: atraumatic, normocephalic, normal inspection - Eye Eye exam: Present: EOMI - ENT ENT exam: normal exam, normal oropharynx, mucous membranes moist - Neck Neck exam: Present: normal inspection, full ROM, trachea midline - Chest Chest inspection: Present: normal inspection, symmetric chest wall rise - Respiratory Respiratory exam: Present: wheezes (diffusely) - Cardiovascular Cardiovascular exam: Present: normal rhythm, tachycardia - Abdominal Exam Abdominal exam: Present: soft, Non-Tender. Absent: tenderness, distention, guarding, rebound, rigidity - Extremities Exam Extremities exam: Present: normal inspection, full ROM. Absent: tenderness, pedal edema - Neurological Exam Neurological exam: Present: alert, oriented X3 - Psychiatric Psychiatric exam: Present: normal affect, normal mood - Skin Skin exam: Present: warm, dry, intact, normal color Course Course Narrative: Patient seen and examined. Shortness of breath worse over the last 3 days. Has had upper respiratory infection symptoms. Upon my examination, she is diffusely wheezy. Suspect a COPD exacerbation. We will give a triple DuoNeb treatment as well as IV Solu-Medrol. We will give a liter of IV fluids and start a dose of 500 mg IV Levaquin. Vital Signs Temperature 97.9 F 10/27/17 19:05 Pulse Rate 103 10/27/17 19:05 Respiratory Rate 15 10/27/17 19:05 Blood Pressure 161/95 10/27/17 19:05 O2 Sat by Pulse Oximetry 95 10/27/17 19:05 Temperature 97.9 F 10/27/17 20:58 Pulse Rate 84 10/28/17 00:27 Respiratory Rate 20 10/28/17 00:27 Blood Pressure 134/91 10/28/17 00:27 O2 Sat by Pulse Oximetry 90 10/28/17 00:27 Oxygen Delivery Oxygen Delivery Nasal Cannula Shortness of Breath/Dyspnea - Medical Records Medical records reviewed: Yes I reviewed the patient's medical records. - Lab Data Lab results reviewed: Yes I reviewed the patient's lab results. Result diagrams: 10/27/17 19:47 10/27/17 19:47 Lab Results 10/27/17 10/27/17 10/27/17 Range/Units 19:47 19:47 19:47 WBC 10.8 (4.3-11.1) K/mcL RBC 5.08 H (3.82-4.97) M/mcL Hgb 15.3 (11.5-15.4) g/dL Hct 46.3 H (35.3-44.9) % MCV 91.1 (83.0-100.0) fL MCH 30.1 (28.0-33.3) pg MCHC 33.0 (31.6-35.5) g/dL RDW 13.6 (11.5-14.5) % Plt Count 248 (140-400) K/mcL MPV 10.6 (9.4-12.4) fL Immature Gran % 0.5 (0-4) % Seg Neutrophils % 64.8 % Lymphocytes % 23.6 % Monocytes % 7.7 % Eosinophils % 2.6 % Basophils % 0.8 % Neutrophils # 7.0 (1.6-8.9) K/mcL Lymphocytes # 2.6 (0.6-4.6) K/mcL Monocytes # 0.8 (0.0-1.3) K/mcL Eosinophils # 0.3 (0.0-0.6) K/mcL Basophils # 0.1 (0.0-0.2) K/mcL D-Dimer (0-500) ng/mLFEU Sodium 138 (136-145) mEq/L Potassium 3.5 (3.5-5.1) mEq/L Chloride 103 (98-107) mEq/L Carbon Dioxide 24 (23-29) mEq/L BUN 9 (6-20) mg/dL Creatinine 0.72 (0.60-1.20) mg/dL Est GFR ( Amer) > 60 (> 60) Est GFR (Non-Af Amer) > 60 (> 60) BUN/Creatinine Ratio 13 (6-26) Glucose 182 H (70-105) mg/dL Calculated Osmolality 289 (280-300) Lactic Acid 2.6 H (0.5-2.2) mmol/L Calcium 9.3 (8.6-10.3) mg/dL Troponin I < 0.03 (< 0.04) ng/mL B-Natriuretic Peptide (Less than 100) pg/mL 09/05/18 09/05/18 Range/Units 19:47 19:47 WBC (4.3-11.1) K/mcL RBC (3.82-4.97) M/mcL Hgb (11.5-15.4) g/dL Hct (35.3-44.9) % MCV (83.0-100.0) fL MCH (28.0-33.3) pg MCHC (31.6-35.5) g/dL RDW (11.5-14.5) % Plt Count (140-400) K/mcL MPV (9.4-12.4) fL Immature Gran % (0-4) % Seg Neutrophils % % Lymphocytes % % Monocytes % % Eosinophils % % Basophils % % Neutrophils # (1.6-8.9) K/mcL Lymphocytes # (0.6-4.6) K/mcL Monocytes # (0.0-1.3) K/mcL Eosinophils # (0.0-0.6) K/mcL Basophils # (0.0-0.2) K/mcL D-Dimer 631 H (0-500) ng/mLFEU Sodium (136-145) mEq/L Potassium (3.5-5.1) mEq/L Chloride (98-107) mEq/L Carbon Dioxide (23-29) mEq/L BUN (6-20) mg/dL Creatinine (0.60-1.20) mg/dL Est GFR ( Amer) (> 60) Est GFR (Non-Af Amer) (> 60) BUN/Creatinine Ratio (6-26) Glucose (70-105) mg/dL Calculated Osmolality (280-300) Lactic Acid (0.5-2.2) mmol/L Calcium (8.6-10.3) mg/dL Troponin I (< 0.04) ng/mL B-Natriuretic Peptide 44 (Less than 100) pg/mL - Radiology Data Radiology results reviewed: Yes I reviewed the patient's radiology results. - EKG Data EKG attestation: Yes I reviewed and interpreted this EKG. EKG results narrative: EKG done at 1948 shows normal sinus rhythm with a rate of [address] elevation or depression noted. Normal axis. Inverted T waves noted in lead 3. Right bundle branch block present. No prior EKG for comparison. Critical Care Time Critical Care Time: Yes Total Critical Care Time: 35 Attestation: Hypoxia; pt desaturated to an oxygen level of 84% after10 mins of nasal cannula being removed; Attestation Statement - Attestation Attestation: DR Conrad note: Pt seen in [place] w/ resident Dr Nunu Knutson; please see her charting for complete documentation; I spend face to face time w/ the pt and agrees w/ the pt 's treatment and disposition; patient has no tachypnea at this time. Reevaluated here 2 times. Patient is aware of her concerning oxygen level. She was offered admission due to her oxygen level she declined admission at this time aware of all risks. She agrees to return if worse. I will continue her on Levaquin, a couple additionally steroids and breathing treatments. Smoking cessation instructions given
[2017-10-27] MEDS ORDERED: Isovue-370 500 ML INFUS..BTL IV ONE (22:06)
[2017-10-28] MEDS ORDERED: *HR* Dextrose 50 % in Water (Syg) 50 ML SYRINGE IVP PRN (03:36)
[2017-10-28] MEDS ORDERED: Dextrose Gel 15 GM/37.5 ML TUBE PO PRN ×2 (03:36)
[2017-10-28] MEDS ORDERED: D5% in Water 1,000 ML IVC PRN (03:36)
[2017-10-28] MEDS ORDERED: Insulin LISPRO 300 UNITS/3 ML VIAL SQ SCH ×3 (03:45→21:00)
[2017-10-28] MEDS ORDERED: Naloxone 0.4 MG/ML INJ IVP PRN (03:53)
[2017-10-28] MEDS: GuaiFENesin Liq 200 MG/10 ML UDC PO PRN ×2 (04:05→20:57)
[2017-10-28] MEDS: Nicotine 14 MG PATCH.TD24 TD SCH (04:05)
[2017-10-28] MEDS: Ipratropium/Albuterol Neb 3 ML IH SCH ×6 (04:25→23:53)
[2017-10-28 05:19] LABS: Basophils % 0.5 %; Eosinophils % 0.1 %; Hematocrit 45.3 % (35.3-44.9); Hemoglobin 14.8 g/dL (11.5-15.4); Immature Granulocytes % 0.6 % (0-4); Lymphocytes # 0.7 K/mcL (0.6-4.6); Lymphocytes % 8.4 %; Mean Corpuscular HGB Conc 32.7 g/dL (31.6-35.5); Mean Corpuscular Volume 91.9 fL (83.0-100.0); Mean Platelet Volume 10.8 fL (9.4-12.4); Monocytes # 0.1 K/mcL (0.0-1.3); Monocytes % 1.4 %; Neutrophils # 6.9 K/mcL (1.6-8.9); Platelet Count 250 K/mcL (140-400); Red Blood Count 4.93 M/mcL (3.82-4.97); Red Cell Distribution Width 13.9 % (11.5-14.5)
[2017-10-28] MEDS: MethylPREDNISolone 40 MG/ML VIAL IVP SCH ×3 (05:27→18:33)
[2017-10-28] MEDS: *HR* Heparin 5,000 UNIT/ML VIAL SQ SCH ×3 (05:29→20:57)
--- NOTE | 2017-10-28 07:08 | Emergency Department Note ---
Disposition Clinical Impression: Smoking Acute bronchitis Qualifiers: Bronchitis organism: unspecified organism Qualified Code(s): J20.9 - Acute bronchitis, unspecified Disposition: Home, Self-Care Condition: Good Time of Disposition: 02:30 General Adult HPI - General Chief complaint: ED Shortness of Breath/Dyspnea Stated complaint: JONATHAN Time Seen by Provider: 10/27/17 20:48 Source: patient Limitations: no limitations Nursing Notes Reviewed: Yes Vital Signs Reviewed: Yes - History of Present Illness Pain Scale: 0 - Related Data Home Medications Medication Instructions Recorded Confirmed Levothyroxine [Synthroid] 50 mcg PO DAILY 04/03/17 04/03/17 Previous Rx's Medication Instructions Recorded HYDROcodone/Acet 5/325 mg [[place] 1 - 2 tab PO Q6H PRN #10 tab 03/01/17 5-325 mg] Esomeprazole Magnesium [Nexium 20 mg PO DAILY #30 tablet. 04/03/17 24Hr] Naproxen [Naprosyn] 500 mg PO BID PRN #20 tablet 07/06/17 Albuterol Sulfate [Albuterol 2 puff IH Q4HR #1 hfa.aer.ad 10/27/17 Inhaler] Levofloxacin [Levaquin] 500 mg PO DAILY #6 tablet 10/27/17 PredniSONE [Deltasone] 20 mg PO DAILY #9 tablet 10/27/17 Saccharomyces Boulardii [Florastor] 250 mg PO DAILY #10 capsule 10/27/17 Allergies Allergy/AdvReac Type Severity Reaction Status Date / Time aspirin Allergy See Verified 07/06/17 19:37 Comments Penicillins Allergy See Verified 07/06/17 19:37 Comments Past Medical History - Past Medical History Medical history: Reports: diabetes, hypertension, myocardial infarction, thyroid disease Surgical history: Reports: non-contributory Psychiatric history: Reports: no psych history - Social History Smoking Status: Current every day smoker Smokeless Tobacco Status: No Alcohol use: Reports: rarely, occasionally Drug use: Reports: none Physical Exam - General Limitations: no limitations General appearance: alert, in no apparent distress Course Course Narrative: Patient initially wanted to go home. However after 10 minutes of her oxygen being removed, she was saturating 84% on room air with good waveform. I discussed with the patient that I recommended that she stay for admission and she is willing to do so. I discussed with hospitalist who has accepted patient for admission. Vital Signs Temperature 97.9 F 10/27/17 19:05 Pulse Rate 103 10/27/17 19:05 Respiratory Rate 15 10/27/17 19:05 Blood Pressure 161/95 10/27/17 19:05 O2 Sat by Pulse Oximetry 95 10/27/17 19:05 Temperature 97.9 F 10/28/17 06:42 Pulse Rate 91 10/28/17 06:42 Respiratory Rate 19 10/28/17 06:42 Blood Pressure 153/88 10/28/17 06:42 O2 Sat by Pulse Oximetry 93 10/28/17 06:42 Oxygen Delivery Oxygen Delivery Nasal Cannula Medical Decision Making - Lab Data Result diagrams: 10/28/17 04:21 10/27/17 19:47 Lab Results 10/27/17 10/27/17 10/27/17 Range/Units 19:47 19:47 19:47 WBC 10.8 (4.3-11.1) K/mcL RBC 5.08 H (3.82-4.97) M/mcL Hgb 15.3 (11.5-15.4) g/dL Hct 46.3 H (35.3-44.9) % MCV 91.1 (83.0-100.0) fL MCH 30.1 (28.0-33.3) pg MCHC 33.0 (31.6-35.5) g/dL RDW 13.6 (11.5-14.5) % Plt Count 248 (140-400) K/mcL MPV 10.6 (9.4-12.4) fL Immature Gran % 0.5 (0-4) % Seg Neutrophils % 64.8 % Lymphocytes % 23.6 % Monocytes % 7.7 % Eosinophils % 2.6 % Basophils % 0.8 % Neutrophils # 7.0 (1.6-8.9) K/mcL Lymphocytes # 2.6 (0.6-4.6) K/mcL Monocytes # 0.8 (0.0-1.3) K/mcL Eosinophils # 0.3 (0.0-0.6) K/mcL Basophils # 0.1 (0.0-0.2) K/mcL D-Dimer (0-500) ng/mLFEU Sodium 138 (136-145) mEq/L Potassium 3.5 (3.5-5.1) mEq/L Chloride 103 (98-107) mEq/L Carbon Dioxide 24 (23-29) mEq/L BUN 9 (6-20) mg/dL Creatinine 0.72 (0.60-1.20) mg/dL Est GFR ( Amer) > 60 (> 60) Est GFR (Non-Af Amer) > 60 (> 60) BUN/Creatinine Ratio 13 (6-26) Glucose 182 H (70-105) mg/dL Calculated Osmolality 289 (280-300) Lactic Acid 2.6 H (0.5-2.2) mmol/L Calcium 9.3 (8.6-10.3) mg/dL Troponin I < 0.03 (< 0.04) ng/mL B-Natriuretic Peptide (Less than 100) pg/mL 10/27/17 10/27/17 Range/Units 19:47 19:47 WBC (4.3-11.1) K/mcL RBC (3.82-4.97) M/mcL Hgb (11.5-15.4) g/dL Hct (35.3-44.9) % MCV (83.0-100.0) fL MCH (28.0-33.3) pg MCHC (31.6-35.5) g/dL RDW (11.5-14.5) % Plt Count (140-400) K/mcL MPV (9.4-12.4) fL Immature Gran % (0-4) % Seg Neutrophils % % Lymphocytes % % Monocytes % % Eosinophils % % Basophils % % Neutrophils # (1.6-8.9) K/mcL Lymphocytes # (0.6-4.6) K/mcL Monocytes # (0.0-1.3) K/mcL Eosinophils # (0.0-0.6) K/mcL Basophils # (0.0-0.2) K/mcL D-Dimer 631 H (0-500) ng/mLFEU Sodium (136-145) mEq/L Potassium (3.5-5.1) mEq/L Chloride (98-107) mEq/L Carbon Dioxide (23-29) mEq/L BUN (6-20) mg/dL Creatinine (0.60-1.20) mg/dL Est GFR ( Amer) (> 60) Est GFR (Non-Af Amer) (> 60) BUN/Creatinine Ratio (6-26) Glucose (70-105) mg/dL Calculated Osmolality (280-300) Lactic Acid (0.5-2.2) mmol/L Calcium (8.6-10.3) mg/dL Troponin I (< 0.04) ng/mL B-Natriuretic Peptide 44 (Less than 100) pg/mL Attestation Statement - Attestation Attestation: Dr Conrad note: Patient has been seen in conjunction with resident Dr. Nunu Knutson; please see her charting for complete documentation. Assessment [id number] time with the patient and agree with the patient's treatment and disposition. Patient became hypoxic on ambulation. Will be admitted for hypoxia. X-ray nonfocal
--- NOTE | 2017-10-28 09:36 | Internal Med History&Physical ---
Date of Encounter: 10/28/17 Time of Encounter: 09:32 Internal Medicine - H&P: HPI Chief complaint: Cough, dyspnea, orthopnea, wheezing Admitted From: Home Plans for Post Hospital Care: Home History of present illness: Ms. Kirkland is a 42 year old female who is a daily smoker with a past medical history of diabetes, hypertension, prior [place] and thyroid disease. She presents to [facility] with a 3 day history of shortness of breath, orthopnea, cough and wheezing. Symptoms are exacerbated with activity and less pronounced with rest. Associated symptoms include, nasal congestion, cough, wheezing, postnasal drip, chest discomfort with inhalation, fevers, chills, fatigue. Additionally, patient reports that prior to admission she was having nausea and vomiting but reports that this is since subsided. She denies any ill contacts, denies any abdominal pain, unilateral extremity swelling or pain, diarrhea. The patient is currently on 2 L nasal cannula, normal at home she does not require oxygen for respiratory support. The patient appears nontoxic and vital signs are stable. CT obtained in the ED negative for pulmonary embolus, or pneumonia. Chest x-ray negative for acute pulmonary process. The only findings on CXR with mild bronchial wall thickening. The patient is being admitted with bronchitis as she is requiring 2 L of oxygen for respiratory support; she does not have a history of respiratory failure. However, we will obtain sputum cultures to further rule out bacterial source. Past Med Surg Social Fam HX - Past Medical History Medical history: diabetes, hypertension, myocardial infarction, thyroid disease Additional medical history: Acute Tachacardia Psychiatric history: no psych history - Past Surgical History Surgical History: non-contributory Additional surgical history: Ablation for tachacardia, 2 etopic preg. - Social History Smoking Status: Current every day smoker Packs per day: 0.5 Smokeless Tobacco Status: No Alcohol use: rarely, occasionally Drug use: none - Family History Mother Adopted: No Family Member Ethnicity: Non- Living Status: Still Living Hx Family Cardiac Disorders: Yes Hx Family Respiratory Disorders: Yes Hx Family Cancer: Yes (CERVICAL) Hx Family GI Disorders: No Hx Family Endocrine Disorder: Yes (THYROID) Hx Family Neuromuscular Disorders: No Hx Family Neurologic Disorders: Yes (STROKE) Hx Family HEENT Disorders: No Hx Family Autoimmune Disorders: No Internal Medicine - H&P: Meds Levothyroxine [Synthroid] 50 mcg PO DAILY 04/03/17 [History] Albuterol Sulfate [Albuterol Inhaler] 2 puff IH Q4HR #1 hfa.aer.ad 10/27/17 [Rx] Levofloxacin [Levaquin] 500 mg PO DAILY #6 tablet 10/27/17 [Rx] PredniSONE [Deltasone] 20 mg PO DAILY #9 tablet 10/27/17 [Rx] Saccharomyces Boulardii [Florastor] 250 mg PO DAILY #10 capsule 10/27/17 [Rx] HydrOXYzine 10 mg PO HS PRN 10/28/17 [History] Lisinopril [Zestril] 10 mg PO DAILY 10/28/17 [History] Metformin HCl [Metformin HCl ER] 500 mg PO QPM 10/28/17 [History] [place]-3S/Dha/Epa/Fish Oil [Fish Oil 1,200 mg Softgel] 1 cap PO DAILY 10/28/17 [ History] Raspberry Ketone [Raspberry Ketones] 100 mg PO DAILY 10/28/17 [History] Turmeric Root Extract [Turmeric] 500 mg PO DAILY 10/28/17 [History] 3 Allergy/AdvReac Type Severity Reaction Status Date / Time aspirin Allergy See Verified 07/06/17 19:37 Comments egg Allergy Vomiting Verified 10/28/17 09:15 Penicillins Allergy See Verified 07/06/17 19:37 Comments raw onions Allergy Swelling Uncoded 10/28/17 09:16 of Lip/Tongue/Throat All Systems PM: A 10-system review of systems was performed and is negative for pertinent findings except as documented above in the HPI. - Constitutional Constitutional: no chills, no fever(s), no night sweats - EENT Eyes: no change in vision, no discharge, no pain, no photophobia Ears: no ear discharge, no ear pain, no tinnitus Nose, mouth and throat: no dysphagia, no nasal discharge, no neck pain, no sore throat - Cardiovascular Cardiovascular ROS IM: no chest pain, no diaphoresis, no dyspnea, no lightheadedness, no palpitations, no syncope - Respiratory Respiratory: as per HPI - Gastrointestinal Gastrointestinal: as per HPI - Genitourinary Genitourinary: no change in urinary stream, no dysuria, no flank pain, no hematuria - Musculoskeletal Musculoskeletal ROS IM: no numbness, no tingling - Integumentary Integumentary IM: no rash, no unusual bruising - Constitutional Vitals: Temp Pulse Resp BP Pulse Ox 97.9 F 91 19 153/88 93 10/28/17 06:42 10/28/17 06:42 10/28/17 06:42 10/28/17 06:42 10/28/17 08:34 Exam: . - Head Head exam: Present: atraumatic, normocephalic - Eye Eye exam: Present: PERRL, conjuntiva pink, sclera anicteric Pupils: Present: PERRL - Neck Neck exam general surgery: Present: supple, trachea midline. Absent: lymphadenopathy - Respiratory Respiratory exam: Present: decreased breath sounds, CTAB, prolonged expiratory phase, wheezes (Expiratory). Absent: accessory muscle use, chest wall tenderness, rales, respiratory distress, rhonchi, tachypnea - Cardiovascular Cardiovascular exam: Present: RRR, +S1, +S2. Absent: diastolic murmur, gallop, rubs, systolic murmur - GI/Abdominal GI/Abdominal exam: Present: normal bowel sounds, soft, no peritoneal signs. Absent: distended, tenderness - Extremities Exam Extremities exam: Present: normal capillary refill, normal inspection, warm, radial pulses palpable and symmetrical. Absent: calf tenderness, cyanotic, pedal edema, tenderness - Neurological Exam Neurological exam: Present: alert, oriented X3. Absent: facial droop, speech deficit - Skin Skin exam: Present: dry, intact Internal Med - H&P Results - Labs CBC & Chem 7: 10/28/17 04:21 10/27/17 19:47 Labs: Short CBC 10/28/17 Range/Units 04:21 WBC 7.7 (4.3-11.1) K/mcL Hgb 14.8 (11.5-15.4) g/dL Hct 45.3 H (35.3-44.9) % Plt Count 250 (140-400) K/mcL Neutrophils # 6.9 (1.6-8.9) K/mcL - Impressions Impressions Chest X-Ray 10/27/17 19:14 IMPRESSION: Mild bronchial wall thickening. No confluent pneumonia. D/ / Tacos Harry MD / Tacos Harry MD Interpreting Provider: Tacos Harry MD Chest CTA 10/27/17 22:06 IMPRESSION: 1. No evidence for acute pulmonary embolism. 2. No evidence for pneumonia. D/ / Adilson Cardozo MD / Adilson Cardozo MD Interpreting Provider: dAilson Cardozo MD - Assessment and plan (1) Acute bronchitis Current Visit: Yes Status: Acute Assessment and plan: Diagnosis acute bronchitis likely viral, consider bacterial etiology as well Continue treating with IV steroids and scheduled DuoNeb's We will add azithromycin for anti-inflammatory properties and cover potential bacterial pathogens Continue nasal cannula when necessary; wean as tolerated Continuous pulse oximetry monitoring Patient presents overnight the plan is to discharge with oral steroid burst short-term course of azithromycin and inhalers Qualifiers: Bronchitis organism: unspecified organism Qualified Code(s): J20.9 - Acute bronchitis, unspecified (2) DMII (diabetes mellitus, type 2) Current Visit: No Status: Acute Assessment and plan: History of type 2 diabetes, well-controlled. Hemoglobin A1c 03/11 5.5 Continue with sliding scale insulin coverage Qualifiers: Diabetes mellitus custodial insulin use: without predatory animal exterminator use Diabetes mellitus complication status: without complication Qualified Code(s): E11.9 - Type 2 diabetes mellitus without complications (3) Hypothyroid Current Visit: No Status: Acute Assessment and plan: Per history Continue Synthroid Qualifiers: Hypothyroidism type: acquired Qualified Code(s): E03.9 - Hypothyroidism, unspecified (4) Tobacco abuse Current Visit: No Status: Acute Assessment and plan: Smoker Discussed tobacco cessation - Time Spent With Patient Total time spent is greater than 50% in coordination of care (as documented) at patient's floor/unit and/or counseling patient: less than 15 minutes
[2017-10-28 09:58] LABS: Alanine Aminotransferase 20 Units/L (7-52); Albumin/Globulin Ratio 1.3 (1.1-2.2); Alkaline Phosphatase 72 Units/L (34-104); Aspartate Amino Transferase 16 Units/L (13-39); BUN/Creatinine Ratio 15 (6-26); Bilirubin,Total 0.2 mg/dL (0.3-1.0); Blood Urea Nitrogen 10 mg/dL (6-20); Calcium 8.9 mg/dL (8.6-10.3); Carbon Dioxide 22 mEq/L (23-29); Chloride 107 mEq/L (98-107); Globulin 3.1 g/dL (2.4-3.5); Glucose 245 mg/dL (70-105); Osmolality,Calculated 295 (280-300); Potassium 3.8 mEq/L (3.5-5.1); Sodium 139 mEq/L (136-145); Total Protein 7.1 g/dL (6.4-8.9); eGFR For Non-African Americans > 60 (> 60)
[2017-10-28] MEDS: Azithromycin 500 MG in D5% in Water 250 ML IVPB SCH (10:31)
[2017-10-28] MEDS: Ondansetron ODT 4 MG TAB.RAPDIS SL PRN ×2 (11:07→20:10)
[2017-10-28] MEDS: Insulin LISPRO 300 UNITS/3 ML VIAL SQ SCH ×2 (12:15→17:00)
[2017-10-29] MEDS: MethylPREDNISolone 40 MG/ML VIAL IVP SCH ×3 (01:27→13:21)
[2017-10-29] MEDS: Nicotine 14 MG PATCH.TD24 TD SCH (01:41)
[2017-10-29] MEDS: Benzonatate 100 MG CAPSULE PO PRN ×2 (01:41→08:58)
[2017-10-29] MEDS: Menthol 9.1 MG LOZENGE PO PRN ×3 (02:31→10:42)
[2017-10-29] MEDS: Ipratropium/Albuterol Neb 3 ML IH SCH ×3 (04:53→11:06)
[2017-10-29] MEDS: *HR* Heparin 5,000 UNIT/ML VIAL SQ SCH ×2 (05:03→13:32)
[2017-10-29 05:40] LABS: Basophils % 0.1 %; Hematocrit 45.8 % (35.3-44.9); Hemoglobin 14.8 g/dL (11.5-15.4); Immature Granulocytes % 0.9 % (0-4); Lymphocytes # 1.2 K/mcL (0.6-4.6); Mean Corpuscular HGB Conc 32.3 g/dL (31.6-35.5); Mean Corpuscular Hemoglobin 30.6 pg (28.0-33.3); Mean Corpuscular Volume 94.6 fL (83.0-100.0); Mean Platelet Volume 11.3 fL (9.4-12.4); Monocytes # 0.7 K/mcL (0.0-1.3); Monocytes % 4.3 %; Neutrophils # 14.4 K/mcL (1.6-8.9); Platelet Count 279 K/mcL (140-400); Red Blood Count 4.84 M/mcL (3.82-4.97); Red Cell Distribution Width 14.1 % (11.5-14.5); Segmented Neutrophils % 87.7 %
[2017-10-29 05:54] LABS: BUN/Creatinine Ratio 22 (6-26); Blood Urea Nitrogen 16 mg/dL (6-20); Calcium 9.5 mg/dL (8.6-10.3); Carbon Dioxide 25 mEq/L (23-29); Chloride 104 mEq/L (98-107); Glucose 237 mg/dL (70-105); Osmolality,Calculated 295 (280-300); Potassium 4.1 mEq/L (3.5-5.1); Sodium 138 mEq/L (136-145); eGFR For Non-African Americans > 60 (> 60)
[2017-10-29] MEDS: Insulin LISPRO 300 UNITS/3 ML VIAL SQ SCH (07:41)
[2017-10-29] MEDS: Azithromycin 500 MG in D5% in Water 250 ML IVPB SCH (08:58)
[2017-10-29] MEDS: GuaiFENesin Liq 200 MG/10 ML UDC PO PRN (08:58)
--- NOTE | 2017-10-29 10:01 | Internal Med Progress Note ---
Hospitalist Progress Note - Encounter Date of Encounter: 10/29/17 Time of Encounter: 09:59 - Subjective Interval History: Continues to report cough, and shortness of breath. Reporting shortness of breath improving however. per assessment this morning the patient appears to be improving. - Exam Vitals: Temp Pulse Resp BP Pulse Ox 98.1 F 102 18 127/77 91 10/29/17 07:16 10/29/17 07:16 10/29/17 07:46 10/29/17 07:16 10/29/17 07:46 Exam: PHYSICAL EXAMINATION: GENERAL: The patient is a 42-year-old female in no apparent distress at this time, she is alert and oriented 3 HEENT: Head is normocephalic and atraumatic. Extraocular muscles are intact. Pupils are equal, round, and reactive to light and accommodation. Nares appeared normal. Mouth is well hydrated and without lesions. Mucous membranes are moist. Posterior pharynx with mild erythema, without exudate or lesions NECK: Supple. No carotid bruits. No lymphadenopathy or thyromegaly. LUNGS: Clear/diminished to auscultation without wheezing AP and L. HEART: Regular rate and rhythm without murmur. ABDOMEN: Soft, nontender, and nondistended. Positive bowel sounds. No hepatosplenomegaly was noted. SKIN: No ulceration or induration present. - Assessment and Plan (1) Acute bronchitis Current Visit: Yes Status: Acute Assessment and Plan: Diagnosis acute bronchitis likely viral, consider bacterial etiology as well Continue treating with IV steroids and scheduled DuoNeb's Continue with Robitussin and Tessalon Perles Continue azithromycin for anti-inflammatory properties and cover potential bacterial pathogens Sputum cultures with preliminary results of GPC Continue nasal cannula when necessary; wean as tolerated; 10/29 patient on room air without respiratory distress SPO2 92%, no tachypnea noted Continuous pulse oximetry monitoring 10/29--leukocytosis found on CBC this morning, patient does not appear toxic, she is afebrile and hemodynamically stable. This is likely caused by IV steroids, continue closely monitor. Monitor for development of fevers or hemodynamic instability or respiratory distress Still room for improvement and patient condition, continue monitor overnight consider discharge in the morning (2) DMII (diabetes mellitus, type 2) Current Visit: No Status: Acute Assessment and Plan: History of type 2 diabetes,Hemoglobin A1c 03/11 5.5 David in blood glucose overnight, likely due to IV steroid use Increase sliding scale insulin coverage (3) Hypothyroid Current Visit: No Status: Acute Assessment and Plan: Per history No symptoms of hypothyroid Continue Synthroid (4) Tobacco abuse Current Visit: No Status: Acute Assessment and Plan: Smoker Discussed tobacco cessation (5) Leukocytosis Current Visit: Yes Status: Acute Assessment and Plan: See above - Time Spent with Patient Total time spent is greater than 50% in coordination of care (as documented) at patient's floor/unit and/or counseling patient: less than 15 minutes Plan of Care Discussed with: patient Internal Medicine: Result - Labs CBC & Chem 7: 10/29/17 03:29 10/29/17 03:29 Labs: Short CBC 10/29/17 Range/Units 03:29 WBC 16.4 H D (4.3-11.1) K/mcL Hgb 14.8 (11.5-15.4) g/dL Hct 45.8 H (35.3-44.9) % Plt Count 279 (140-400) K/mcL Neutrophils # 14.4 H (1.6-8.9) K/mcL BMP 10/29/17 03:29 Sodium 138 Potassium 4.1 Chloride 104 Carbon Dioxide 25 BUN 16 Creatinine 0.72 Glucose 237 H Calcium 9.5 - ABG Interpretation ABG results: PT/INR, D-dimer D-Dimer 631 ng/mLFEU (0-500) H 10/27/17 19:47 - Impressions Impressions Abdomen Ultrasound 10/28/17 16:00 IMPRESSION: 1. Negative for cholelithiasis or acute cholecystitis. 2. Negative for biliary obstruction. 3. Hepatic steatosis. 4. Probable nonobstructing 4 mm right kidney mid nephrolith. No hydronephrosis. D/ / 10/28/2017 17:40:59 Yobany Langford MD / igor Interpreting Provider: Yobany Langford MD Consult Discharge Plan - Plan Referrals: Melissa Swift DO [Primary Care Provider] - 11/03/17 9:30 am () (1) Acute bronchitis Qualifiers: Bronchitis organism: unspecified organism Qualified Code(s): J20.9 - Acute bronchitis, unspecified (2) DMII (diabetes mellitus, type 2) Qualifiers: Diabetes mellitus longterm insulin use: without oil heaterman use Diabetes mellitus complication status: without complication Qualified Code(s): E11.9 - Type 2 diabetes mellitus without complications (3) Hypothyroid Qualifiers: Hypothyroidism type: acquired Qualified Code(s): E03.9 - Hypothyroidism, unspecified
[2017-10-29] MEDS: Ondansetron ODT 4 MG TAB.RAPDIS SL PRN (10:42)
[2017-10-29] MEDS ORDERED: Insulin LISPRO 300 UNITS/3 ML VIAL SQ SCH ×2 (11:30→21:00)
[2017-10-29 12:40] VITALS: BP 143/82
--- NOTE | 2017-10-29 13:59 | Discharge Summary ---
Orders not resulted at time of discharge: Pending orders 10/28/17 10:25 Culture,Sputum with Gram Stain [RM] Routine Date of Encounter: 10/29/17 Time of Encounter: 13:57 - Discharge Diagnosis (1) Acute bronchitis Priority: Primary Status: Acute Assessment and Plan: Diagnosis acute bronchitis likely viral, consider bacterial etiology as well Continue treating with IV steroids and scheduled DuoNeb's Continue with Robitussin and Tessalon Perles Continue azithromycin for anti-inflammatory properties and cover potential bacterial pathogens Sputum cultures with preliminary results of GPC Continue nasal cannula when necessary; wean as tolerated; 10/29 patient on room air without respiratory distress SPO2 92%, no tachypnea noted Continuous pulse oximetry monitoring 10/29--leukocytosis found on CBC this morning, patient does not appear toxic, she is afebrile and hemodynamically stable. This is likely caused by IV steroids, continue closely monitor. Monitor for development of fevers or hemodynamic instability or respiratory distress Respiratory status improving afternoon. Patient requesting discharge home. Discussed with patient increase in white count and further monitoring however, patient declines and wishes to discharge home. We will discharge her with nicotine patch for tobacco cessation, additionally will discharge with Tessalon Perles for cough. Discussed symptomatic care patient verbalizes understanding denies any further questions. She is instructed to return to the ED she shortness of breath returning or worsen. Qualifiers: Bronchitis organism: unspecified organism Qualified Code(s): J20.9 - Acute bronchitis, unspecified (2) DMII (diabetes mellitus, type 2) Priority: Secondary Status: Acute Qualifiers: Diabetes mellitus assistant terminal manager insulin use: without assistant terminal manager use Diabetes mellitus complication status: without complication Qualified Code(s): E11.9 - Type 2 diabetes mellitus without complications (3) Hypothyroid Priority: Secondary Status: Acute Qualifiers: Hypothyroidism type: acquired Qualified Code(s): E03.9 - Hypothyroidism, unspecified (4) Tobacco abuse Priority: Secondary Status: Acute (5) Leukocytosis Priority: Secondary Status: Acute Assessment and Plan: See above Qualifiers: Qualified Code(s): D72.829 - Elevated white blood cell count, unspecified Hospital course: Ms. Kirkland is a 42 year old female admitted with shortness of breath, found to have bronchitis likely viral. Improved with IV steroids, and DuoNeb's. Additionally, was given azithromycin for anti-inflammatory properties. However he was also found to have potential GPC per pending respiratory panel. Continue the azithromycin at discharge for an additional 3 days. Respiratory status improving afternoon. Patient requesting discharge home. Discussed with patient increase in white count and further monitoring however, patient declines and wishes to discharge home. We will discharge her with nicotine patch for tobacco cessation, additionally will discharge with Tessalon Perles for cough. Discussed symptomatic care patient verbalizes understanding denies any further questions. She is instructed to return to the ED she shortness of breath returning or worsen. See assessment and plan for hospital course Discharge discussed with: patient, nurse Time spent discussing smoking cessation with patient: 3 to 10 minutes - Time Spent with Patient Total time spent providing and/or coordinating discharge services: Less than 30 minutes - Discharge Medications Prescriptions: Benzonatate [Tessalon] 100 mg PO TID 14 Days #42 capsule Nicotine Patch [Nicoderm] 21 mg TD DAILY 30 Days #30 patch Home Medications: Levothyroxine [Synthroid] 50 mcg PO DAILY 04/03/17 [History] Albuterol Sulfate [Albuterol Inhaler] 2 puff IH Q4HR #1 hfa.aer.ad 10/27/17 [Rx] Levofloxacin [Levaquin] 500 mg PO DAILY #6 tablet 10/27/17 [Rx] PredniSONE [Deltasone] 20 mg PO DAILY #9 tablet 10/27/17 [Rx] Saccharomyces Boulardii [Florastor] 250 mg PO DAILY #10 capsule 10/27/17 [Rx] HydrOXYzine 10 mg PO HS PRN 10/28/17 [History] Lisinopril [Zestril] 10 mg PO DAILY 10/28/17 [History] Metformin HCl [Metformin HCl ER] 500 mg PO QPM 10/28/17 [History] [place]-3S/Dha/Epa/Fish Oil [Fish Oil 1,200 mg Softgel] 1 cap PO DAILY 10/28/17 [ History] Raspberry Ketone [Raspberry Ketones] 100 mg PO DAILY 10/28/17 [History] Turmeric Root Extract [Turmeric] 500 mg PO DAILY 10/28/17 [History] Albuterol Sulfate [Albuterol Inhaler] 1 puff IH Q4HR 30 Days #1 hfa.aer.ad 10/29 [Rx] Azithromycin [Azithromycin 6-Tab Pack] 250 mg PO PER PKG DI #6 tab 10/29/17 [Rx] Benzonatate [Tessalon] 100 mg PO TID 14 Days #42 capsule 10/29/17 [Rx] Nicotine Patch [Nicoderm] 21 mg TD DAILY 30 Days #30 patch 10/29/17 [Rx] predniSONE [PredniSONE] 40 mg PO DAILY 5 Days #10 tablet 10/29/17 [Rx] Allergies/Adverse Reactions: 3 Allergy/AdvReac Type Severity Reaction Status Date / Time aspirin Allergy See Verified 07/06/17 19:37 Comments egg Allergy Vomiting Verified 10/28/17 09:15 Penicillins Allergy See Verified 07/06/17 19:37 Comments raw onions Allergy Swelling Uncoded 10/28/17 09:16 of Lip/Tongue/Throat Date of admission: 10/28/17 01:13 Primary care physician: Fabien Erickson Discharging clinician: Abel Cardenas Anticipated date of discharge: 10/29/17 - Constitutional Vitals: Temp Pulse Resp BP Pulse Ox 98.1 F 111 19 143/82 92 10/29/17 12:39 10/29/17 12:39 10/29/17 12:39 10/29/17 12:39 10/29/17 12:39 Exam: PHYSICAL EXAMINATION: GENERAL: The patient is a 42-year-old female in no apparent distress at this time, she is alert and oriented 3 HEENT: Head is normocephalic and atraumatic. Extraocular muscles are intact. Pupils are equal, round, and reactive to light and accommodation. Nares appeared normal. Mouth is well hydrated and without lesions. Mucous membranes are moist. Posterior pharynx with mild erythema, without exudate or lesions NECK: Supple. No carotid bruits. No lymphadenopathy or thyromegaly. LUNGS: Clear/diminished to auscultation without wheezing AP and L. HEART: Regular rate and rhythm without murmur. ABDOMEN: Soft, nontender, and nondistended. Positive bowel sounds. No hepatosplenomegaly was noted. SKIN: No ulceration or induration present. - Patient Status Disposition: Home, Self-Care Condition: Good Functional capacity at discharge: independent ambulation Overall status at discharge: patient is progressing back to baseline - Discharge Instructions Instructions: Chronic Obstructive Pulmonary Disease (DC) Follow Up With: Little,Melissa E, DO [Primary Care Provider] - 11/03/17 9:30 am () - Diet and Activity Activity: increase activity as tolerated, resume usual activities as tolerated Diet: advance to your usual diet
--- NOTE | 2017-10-30 14:59 | Electrocardiograph Report ---
[address] [address] Test Date: 2017-10-27 Pat Name: Britney Kirkland Department: 104 Room: 3B16 Gender: F Subject Scientific Research: BEAU : 1975 Requested By: Michael Farooq Order Number: [id number] Reading MD: Chris Carias Measurements Intervals [place] Rate: 99 P: 67 MO: 132 QRS: 90 QRSD: 135 T: 8 QT: 378 QTc: 434 Interpretive Statements SINUS RHYTHM RIGHT BUNDLE BRANCH BLOCK Electronically Signed On 10-30-2017 14:57:33 EDT by Chris Carias
--- NOTE | 2017-10-30 15:31 | Electrocardiograph Report ---
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
== END 2017-10-29 15:19 | disposition home or self-care (01) ==
LOC: 3BNU 18:50 → EMEROOARM 18:50 → 3BNU 10-28 02:07
PROVIDERS: ADMIT Internal Medicine; ATTEND Internal Medicine

== ENCOUNTER 2017-10-30 20:10 | Observation (INO) ==
[2017-10-30] MEDS ORDERED: Ipratropium/Albuterol Neb 3 ML IH ONE (20:29)
--- NOTE | 2017-10-30 20:37 | Emergency Department Note ---
Disposition Clinical Impression: COPD exacerbation Disposition: Admitted As Inpatient Condition: Fair Time of Disposition: 23:55 General Adult HPI - General Chief complaint: ED Shortness of Breath/Dyspnea Stated complaint: JONATHAN Time Seen by Provider: 10/30/17 20:19 Source: patient Mode of arrival: ambulatory Limitations: no limitations Nursing Notes Reviewed: Yes Vital Signs Reviewed: Yes - History of Present Illness HPI Narrative: Patient is a 42-year-old female with a past medical history of COPD and atrial fibrillation having undergone ablation presents to the emergency department for evaluation of dyspnea. According to the patient she was discharged from the hospital yesterday after she is being treated for acute bronchitis with steroids , albuterol, and antibiotic. She states that she felt like she was improving yesterday, however she woke up this morning and she began to get worse again and now she states she feels worse than when she came in the last time. The patient states that throughout the day she has had increasing work of breathing and increasing oxygen requirement. States she has been taking her albuterol inhaler every couple of hours and discontinued the antibiotic and steroid that were initially prescribed. Patient states in total her symptoms started approximately 6 days ago with a cough and scratchy throat when she has become progressively dyspneic. She denies any past medical history of PE/DVT, ACS, estrogen use, recent surgery or travels. Denies chest pain. Pain Scale: 0 - Related Data Home Medications Medication Instructions Recorded Confirmed Levothyroxine [Synthroid] 50 mcg PO DAILY 04/03/17 10/28/17 HydrOXYzine 10 mg PO HS PRN 10/28/17 10/28/17 Lisinopril [Zestril] 10 mg PO DAILY 10/28/17 10/28/17 Metformin HCl [Metformin HCl ER] 500 mg PO QPM 10/28/17 10/28/17 [place]-3S/Dha/Epa/Fish Oil [Fish 1 cap PO DAILY 10/28/17 10/28/17 Oil 1,200 mg Softgel] Raspberry Ketone [Raspberry 100 mg PO DAILY 10/28/17 10/28/17 Ketones] Turmeric Root Extract [Turmeric] 500 mg PO DAILY 10/28/17 10/28/17 Previous Rx's Medication Instructions Recorded Albuterol Sulfate [Albuterol 2 puff IH Q4HR #1 hfa.aer.ad 10/27/17 Inhaler] PredniSONE [Deltasone] 20 mg PO DAILY #9 tablet 10/27/17 Albuterol Sulfate [Albuterol 1 puff IH Q4HR 30 Days #1 10/29/17 Inhaler] hfa.aer.ad Azithromycin [Azithromycin 6-Tab 250 mg PO PER PKG DI #6 tab 10/29/17 Pack] Benzonatate [Tessalon] 100 mg PO TID 14 Days #42 capsule 10/29/17 Nicotine Patch [Nicoderm] 21 mg TD DAILY 30 Days #30 patch 10/29/17 predniSONE [PredniSONE] 40 mg PO DAILY 5 Days #10 tablet 10/29/17 Allergies Allergy/AdvReac Type Severity Reaction Status Date / Time aspirin Allergy See Verified 07/06/17 19:37 Comments egg Allergy Vomiting Verified 10/28/17 09:15 Penicillins Allergy See Verified 07/06/17 19:37 Comments raw onions Allergy Swelling Uncoded 10/28/17 09:16 of Lip/Tongue/Throat All systems ED: reviewed and negative except as stated. Review of Systems: As Per HPI Constitutional: Denies: fever, chills Cardiovascular: Reports: dyspnea on exertion. Denies: chest pain, palpitations Respiratory: Reports: cough, dyspnea, wheezes, sputum production. Denies: hemoptysis, stridor Gastrointestinal: Denies: abdominal pain, nausea, vomiting Genitourinary: Denies: urgency, dysuria Musculoskeletal: Denies: back pain, neck pain Past Medical History - Past Medical History Attestation: Yes The following information was validated with the patient. Medical history: Reports: diabetes, hypertension, myocardial infarction, thyroid disease Surgical history: Reports: non-contributory Psychiatric history: Reports: no psych history - Social History Smoking Status: Current some day smoker Smokeless Tobacco Status: No Alcohol use: Reports: rarely, occasionally Drug use: Reports: none Physical Exam CONSTITUTIONAL: A&O X 3, in mild respiratory distress. Patient is at 92% on 1.5L NC. Vitals otherwise stable. HEAD: Normocephalic; atraumatic EYES: PERRL, no scleral icterus NOSE: The nose is normal in appearance without rhinorrhea NECK: No JVD or distended neck veins RESP: Increased work of breathing. Sitting up over edge of bed with hands on knees bent forward. Diffuse wheezing on inspiraiton and expiration. CARD: Regular rhythm, without murmurs, rub or gallop ABD: Non-distended; non-tender, soft, without rigidity, rebound or guarding,no pulsatile mass CHEST: No pain with palpation SKIN: Normal for age and race; warm and dry without diaphoresis ; no apparent lesions EXTREMITIES: Pulses are 2 plus and equal times 4 extremities, no peripheral edema or calf muscle pain - General Limitations: no limitations General appearance: alert Course Course Narrative: Patient was initially seen in the ED on 10/27/17 in which she was evaluated for dyspnea at that time and ultimately diagnosed with acute bronchitis in which she required admission until 10/29 and then she was discharged home with a prescription for prednisone and azithromycin with an albuterol inhaler. The patient underwent evaluation for pulmonary embolism on her initial visit which she had a CTA of the chest that was negative for pneumonia or pulmonary embolism. Plan at this time is to evaluate the patient's dyspnea with a chest x -ray as well as cardiac workup to make sure there is no other etiology of the patient's current condition. I suspect that this is a COPD/bronchitis exacerbation. Given that her symptoms of been continuous over the past 5 days out it is necessary at this time to order an additional CTA of the chest to evaluate for PE given that was artery ruled out. Patient does have increased sputum production and may be acquiring a pneumonia. We will start treatment with a duoneb burst at this time. - Reevaluation(s) Reevaluation #1: On reevaluation patient has improved breathing. Improved aeration of both lungs bilaterally. States to have expiratory wheezing. Discussed with patient plan is times take her off the nasal cannula oxygen and see how well her oxygen saturation is. She does note that we will attempt ambulation in the ED to see if she drops and becomes hypoxic. Discussed pending these results will determine patient's disposition. Patient agrees with that plan. Time: 22:26 Reevaluation #2: Patient stated that she does not feel comfortable going home at this time given that she was recently discharged and continued to get worse. I discussed patient's case with hospitalist on-call, Dr. Smith, and he agrees to accept the patient. Vital Signs Temperature 98.0 F 10/30/17 20:13 Pulse Rate 90 10/30/17 20:13 Respiratory Rate 20 09/08/18 20:13 Blood Pressure 163/104 10/30/17 20:13 O2 Sat by Pulse Oximetry 96 10/30/17 20:13 Temperature 97.8 F 10/31/17 01:21 Pulse Rate 84 10/31/17 01:21 Respiratory Rate 17 10/31/17 01:21 Blood Pressure 153/99 10/31/17 01:21 O2 Sat by Pulse Oximetry 94 10/31/17 01:21 Oxygen Delivery Oxygen Delivery Room Air Medical Decision Making - Medical Records Medical records reviewed: Yes I reviewed the patient's medical records. - Lab Data Lab results reviewed: Yes I reviewed the patient's lab results. Result diagrams: 10/30/17 20:38 10/30/17 20:38 Lab Results 10/30/17 10/30/17 10/30/17 Range/Units 20:38 20:38 20:38 WBC 13.3 H (4.3-11.1) K/mcL RBC 4.90 (3.82-4.97) M/mcL Hgb 15.1 (11.5-15.4) g/dL Hct 45.5 H (35.3-44.9) % MCV 92.9 (83.0-100.0) fL MCH 30.8 (28.0-33.3) pg MCHC 33.2 (31.6-35.5) g/dL RDW 13.8 (11.5-14.5) % Plt Count 286 (140-400) K/mcL MPV 10.3 (9.4-12.4) fL Immature Gran % 2.8 (0-4) % Seg Neutrophils % 73.2 % Lymphocytes % 18.1 % Monocytes % 4.8 % Eosinophils % 0.6 % Basophils % 0.5 % Neutrophils # 9.7 H (1.6-8.9) K/mcL Lymphocytes # 2.4 (0.6-4.6) K/mcL Monocytes # 0.6 (0.0-1.3) K/mcL Eosinophils # 0.1 (0.0-0.6) K/mcL Basophils # 0.1 (0.0-0.2) K/mcL Sodium 139 (136-145) mEq/L Potassium 4.2 (3.5-5.1) mEq/L Chloride 106 (98-107) mEq/L Carbon Dioxide 24 (23-29) mEq/L BUN 17 (6-20) mg/dL Creatinine 0.82 (0.60-1.20) mg/dL Est GFR ( Amer) > 60 (> 60) Est GFR (Non-Af Amer) > 60 (> 60) BUN/Creatinine Ratio 21 (6-26) Glucose 181 H (70-105) mg/dL Calculated Osmolality 294 (280-300) Lactic Acid 2.4 H (0.5-2.2) mmol/L Calcium 9.2 (8.6-10.3) mg/dL Troponin I < 0.03 (< 0.04) ng/mL B-Natriuretic Peptide (Less than 100) pg/mL 10/30/17 10/30/17 Range/Units 20:38 22:35 WBC (4.3-11.1) K/mcL RBC (3.82-4.97) M/mcL Hgb (11.5-15.4) g/dL Hct (35.3-44.9) % MCV (83.0-100.0) fL MCH (28.0-33.3) pg MCHC (31.6-35.5) g/dL RDW (11.5-14.5) % Plt Count (140-400) K/mcL MPV (9.4-12.4) fL Immature Gran % (0-4) % Seg Neutrophils % % Lymphocytes % % Monocytes % % Eosinophils % % Basophils % % Neutrophils # (1.6-8.9) K/mcL Lymphocytes # (0.6-4.6) K/mcL Monocytes # (0.0-1.3) K/mcL Eosinophils # (0.0-0.6) K/mcL Basophils # (0.0-0.2) K/mcL Sodium (136-145) mEq/L Potassium (3.5-5.1) mEq/L Chloride (98-107) mEq/L Carbon Dioxide (23-29) mEq/L BUN (6-20) mg/dL Creatinine (0.60-1.20) mg/dL Est GFR ( Amer) (> 60) Est GFR (Non-Af Amer) (> 60) BUN/Creatinine Ratio (6-26) Glucose (70-105) mg/dL Calculated Osmolality (280-300) Lactic Acid 2.4 H (0.5-2.2) mmol/L Calcium (8.6-10.3) mg/dL Troponin I (< 0.04) ng/mL B-Natriuretic Peptide 79 (Less than 100) pg/mL - Radiology Data Radiology results reviewed: Yes I reviewed the patient's radiology results. Chest X-Ray 10/30/17 20:20 IMPRESSION: No acute process. D/ / Antony Crawford MD / Antony Crawford MD Interpreting Provider: Antony Crawford MD - EKG Data EKG #1 EKG attestation: Yes I reviewed and interpreted this EKG. EKG results narrative: EKG done at 20:53 shows sinus rhythm at a rate of 87 bpm. Normal axis. Intervals including [place], QRS and QT are within normal limits. Incomplete right bundle branch block. No signs of ischemia. EKG is unchanged from 10/28/2017. Attestation Statement - Attestation Attestation: I, Antonio Villagomez, examined this patient and my medical decision-making was reviewed with the INKER MACHINE/PA/Advanced Practice Nurse/Resident Physician. I agree with the documented findings, disposition and treatment plan as described except to the extent set forth below. 42-year-old female presents emergency Department with concerns of difficulty in breathing. Patient was admitted to the hospital for similar symptoms within the past week. She was just discharged 2 days ago. Patient noted that she had felt improved upon her discharge however over the past 24-48 hours she progressively worsened. Patient has a cough that is nonproductive. She felt subjectively febrile prior to arrival. Patient is currently taking azithromycin and prednisone 60 mg and albuterol inhaler at home without improvement of her symptoms. Patient is having increased work of breathing with conversation in the emergency department. Chest x-ray was negative for acute infiltrate. We will obtain laboratory evaluation or further evaluate possible cardiac involvement. She took 60 mg of prednisone today and so will not repeat steroids in the emergency department. She will be given breathing treatment emergency department and then an ambulation trial. Disposition and laboratory evaluation pending at this time.
[2017-10-30 20:47] LABS: Basophils # 0.1 K/mcL (0.0-0.2); Basophils % 0.5 %; Eosinophils # 0.1 K/mcL (0.0-0.6); Eosinophils % 0.6 %; Hematocrit 45.5 % (35.3-44.9); Hemoglobin 15.1 g/dL (11.5-15.4); Immature Granulocytes % 2.8 % (0-4); Lymphocytes # 2.4 K/mcL (0.6-4.6); Lymphocytes % 18.1 %; Mean Corpuscular HGB Conc 33.2 g/dL (31.6-35.5); Mean Corpuscular Hemoglobin 30.8 pg (28.0-33.3); Mean Corpuscular Volume 92.9 fL (83.0-100.0); Mean Platelet Volume 10.3 fL (9.4-12.4); Monocytes # 0.6 K/mcL (0.0-1.3); Monocytes % 4.8 %; Neutrophils # 9.7 K/mcL (1.6-8.9); Platelet Count 286 K/mcL (140-400); Red Cell Distribution Width 13.8 % (11.5-14.5); Segmented Neutrophils % 73.2 %
[2017-10-30 21:09] LABS: BUN/Creatinine Ratio 21 (6-26); Blood Urea Nitrogen 17 mg/dL (6-20); Calcium 9.2 mg/dL (8.6-10.3); Carbon Dioxide 24 mEq/L (23-29); Chloride 106 mEq/L (98-107); Glucose 181 mg/dL (70-105); Osmolality,Calculated 294 (280-300); Potassium 4.2 mEq/L (3.5-5.1); Sodium 139 mEq/L (136-145); Troponin I < 0.03 ng/mL (< 0.04); eGFR For Non-African Americans > 60 (> 60)
[2017-10-30] MEDS ORDERED: 0.9 % Sodium Chloride 1,000 ML IVC ONE (21:43)
[2017-10-31 07:39] LABS: Hematocrit 43.1 % (35.3-44.9); Mean Corpuscular HGB Conc 32.5 g/dL (31.6-35.5); Mean Corpuscular Hemoglobin 30.4 pg (28.0-33.3); Mean Corpuscular Volume 93.5 fL (83.0-100.0); Mean Platelet Volume 10.5 fL (9.4-12.4); Platelet Count 243 K/mcL (140-400); Red Blood Count 4.61 M/mcL (3.82-4.97); Red Cell Distribution Width 13.7 % (11.5-14.5)
[2017-10-31 07:46] LABS: BUN/Creatinine Ratio 20 (6-26); Blood Urea Nitrogen 14 mg/dL (6-20); Calcium 8.7 mg/dL (8.6-10.3); Carbon Dioxide 28 mEq/L (23-29); Chloride 106 mEq/L (98-107); Glucose 110 mg/dL (70-105); Osmolality,Calculated 291 (280-300); Potassium 3.9 mEq/L (3.5-5.1); Sodium 140 mEq/L (136-145); eGFR For Non-African Americans > 60 (> 60)
[2017-10-31] MEDS ORDERED: predniSONE 20 MG TABLET PO SCH (09:00)
[2017-10-31] MEDS: Azithromycin 250 MG TABLET PO SCH (09:11)
--- NOTE | 2017-10-31 10:22 | Internal Med History&Physical ---
Date of Encounter: 10/31/17 Time of Encounter: 10:22 Internal Medicine - H&P: HPI Chief complaint: Shortness of breath. Admitted From: Emergency Dept Plans for Post Hospital Care: Home History of present illness: Ms. Kirkland is a 42 year old female patient with history of diabetes mellitus, hypertension who was hospitalized here recently for episode of acute bronchitis and was treated with azithromycin and steroids and was discharged on steroid taper. She will return to the ER with complaints of worsening shortness of breath that began the day after her discharge. She has been having a lot of cough without any phlegm. Continues to have wheezing. Not previously diagnosed with COPD but has have chronic smoking history. She received bronchodilators in the ER and is feeling a little better but continues to have wheezing and shortness of breath. Past Med Surg Social Fam HX - Past Medical History Attestation: Yes The following information was validated with the patient. Source: patient Medical history: diabetes, hypertension, myocardial infarction, thyroid disease Additional medical history: Acute Tachacardia Psychiatric history: no psych history - Past Surgical History Surgical History: non-contributory Additional surgical history: Ablation for tachacardia, 2 etopic preg. - Social History Smoking Status: Current some day smoker Smokeless Tobacco Status: No Alcohol use: rarely, occasionally Drug use: none - Family History Mother History Unknown: Yes Adopted: No Family Member Ethnicity: Non- Living Status: Still Living Hx Family Cardiac Disorders: Yes Hx Family Respiratory Disorders: Yes Hx Family Cancer: Yes (CERVICAL) Hx Family GI Disorders: No Hx Family Endocrine Disorder: Yes (THYROID) Hx Family Neuromuscular Disorders: No Hx Family Neurologic Disorders: Yes (STROKE) Hx Family HEENT Disorders: No Hx Family Autoimmune Disorders: No Internal Medicine - H&P: Meds Levothyroxine [Synthroid] 50 mcg PO DAILY 04/03/17 [History] Albuterol Sulfate [Albuterol Inhaler] 2 puff IH Q4HR #1 hfa.aer.ad 10/27/17 [Rx] PredniSONE [Deltasone] 20 mg PO DAILY #9 tablet 10/27/17 [Rx] HydrOXYzine 10 mg PO HS PRN 10/28/17 [History] Lisinopril [Zestril] 10 mg PO DAILY 10/28/17 [History] Metformin HCl [Metformin HCl ER] 500 mg PO QPM 10/28/17 [History] [place]-3S/Dha/Epa/Fish Oil [Fish Oil 1,200 mg Softgel] 1 cap PO DAILY 10/28/17 [ History] Raspberry Ketone [Raspberry Ketones] 100 mg PO DAILY 10/28/17 [History] Turmeric Root Extract [Turmeric] 500 mg PO DAILY 10/28/17 [History] Albuterol Sulfate [Albuterol Inhaler] 1 puff IH Q4HR 30 Days #1 hfa.aer.ad 10/29 [Rx] Azithromycin [Azithromycin 6-Tab Pack] 250 mg PO PER PKG DI #6 tab 10/29/17 [Rx] Benzonatate [Tessalon] 100 mg PO TID 14 Days #42 capsule 10/29/17 [Rx] Nicotine Patch [Nicoderm] 21 mg TD DAILY 30 Days #30 patch 10/29/17 [Rx] predniSONE [PredniSONE] 40 mg PO DAILY 5 Days #10 tablet 10/29/17 [Rx] 3 Allergy/AdvReac Type Severity Reaction Status Date / Time aspirin Allergy See Verified 07/06/17 19:37 Comments egg Allergy Vomiting Verified 10/28/17 09:15 Penicillins Allergy See Verified 07/06/17 19:37 Comments raw onions Allergy Swelling Uncoded 10/28/17 09:16 of Lip/Tongue/Throat All Systems PM: A 10-system review of systems was performed and is negative for pertinent findings except as documented above in the HPI. - Constitutional Constitutional: no chills, no fever(s), no night sweats - EENT Eyes: no change in vision, no discharge, no pain, no photophobia Ears: no ear discharge, no ear pain, no tinnitus Nose, mouth and throat: no dysphagia, no nasal discharge, no neck pain, no sore throat - Cardiovascular Cardiovascular ROS IM: no chest pain, no diaphoresis, no dyspnea, no lightheadedness, no palpitations, no syncope - Respiratory Respiratory: cough, dyspnea, wheezing - Gastrointestinal Gastrointestinal: no abdominal pain, no diarrhea, no hematemesis, no hematochezia, no melena, no nausea, no vomiting - Genitourinary Genitourinary: no change in urinary stream, no dysuria, no flank pain, no hematuria - Musculoskeletal Musculoskeletal ROS IM: no numbness, no tingling - Integumentary Integumentary IM: no rash, no unusual bruising - Neurological Neurological ROS: no confusion, no convulsions, no focal weakness, no numbness, no tingling, no tremor(s) - Hematologic/Lymphatic Hematologic/Lymphatic: no easy bruising - Constitutional Vitals: Temp Pulse Resp BP Pulse Ox 97.9 F 76 19 135/89 96 10/31/17 08:34 10/31/17 08:34 10/31/17 08:34 10/31/17 08:34 10/31/17 08:34 General appearance: Present: cooperative, A&O X 3, answers questions appropriately Exam: Moderate distress - Eye Eye exam: Present: EOMI, PERRL, conjuntiva pink, sclera anicteric - Neck Neck exam general surgery: Present: supple, trachea midline. Absent: lymphadenopathy - Respiratory Respiratory exam: Present: prolonged expiratory phase, wheezes. Absent: accessory muscle use, rales, rhonchi - Cardiovascular Cardiovascular exam: Present: RRR, +S1, +S2. Absent: diastolic murmur, gallop, rubs, systolic murmur - GI/Abdominal GI/Abdominal exam: Present: normal bowel sounds, soft, no peritoneal signs. Absent: distended, tenderness - Extremities Exam Extremities exam: Present: warm, radial pulses palpable and symmetrical. Absent : calf tenderness, cyanotic, pedal edema - Neurological Exam Neurological exam: Present: CN II-XII intact, oriented X3, no focal deficits. Absent: facial droop, speech deficit - Skin Skin exam: Present: dry, intact Internal Med - H&P Results - Labs CBC & Chem 7: 10/31/17 06:58 10/31/17 06:58 Labs: Short CBC 10/31/17 Range/Units 06:58 WBC 11.6 H (4.3-11.1) K/mcL Hgb 14.0 (11.5-15.4) g/dL Hct 43.1 (35.3-44.9) % Plt Count 243 (140-400) K/mcL BMP 10/31/17 06:58 Sodium 140 Potassium 3.9 Chloride 106 Carbon Dioxide 28 BUN 14 Creatinine 0.70 Glucose 110 H Calcium 8.7 - Impressions Impressions Chest X-Ray 10/30/17 20:20 IMPRESSION: No acute process. D/ / Antony Crawford MD / Antony Crawford MD Interpreting Provider: Antony Crawford MD - Assessment and plan (1) COPD exacerbation Current Visit: Yes Status: Acute Assessment and plan: Patient hospitalized with acute COPD exacerbation. Not previously diagnosed with COPD but she does have risk factors and is a chronic smoker. Will treat her suspecting COPD and continue bronchodilators, steroids, O2 supplementation as needed. She will need to follow up with pulmonology after discharge for lung function testing. High risk for complications. (2) DMII (diabetes mellitus, type 2) Current Visit: Yes Status: Chronic Assessment and plan: Monitor blood sugars. Diabetic diet and sliding scale insulin. Expect rise in blood sugars as patient will be receiving steroids. 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 Nicotine patch ordered. - Time Spent With Patient Total time spent is greater than 50% in coordination of care (as documented) at patient's floor/unit and/or counseling patient:
[2017-10-31] MEDS ORDERED: Ipratropium/Albuterol Neb 3 ML IH SCH (11:00)
[2017-10-31] MEDS: Nicotine 21 MG PATCH.TD24 TD SCH (11:33)
[2017-10-31] MEDS ORDERED: *HR* Dextrose 50 % in Water (Syg) 50 ML SYRINGE IVP PRN (11:40)
[2017-10-31] MEDS ORDERED: Dextrose Gel 15 GM/37.5 ML TUBE PO PRN ×2 (11:40)
[2017-10-31] MEDS ORDERED: D5% in Water 1,000 ML IVC PRN (11:40)
[2017-10-31] MEDS: Ipratropium/Albuterol Neb 3 ML IH SCH ×4 (11:43→23:54)
[2017-10-31] MEDS: Benzonatate 100 MG CAPSULE PO SCH ×2 (17:17→20:10)
[2017-10-31] MEDS: Insulin LISPRO 300 UNITS/3 ML VIAL SQ SCH ×2 (17:18→21:17)
[2017-10-31] MEDS: methylPREDNISolone 125 MG/2 ML VIAL IVP SCH (17:22)
[2017-10-31] MEDS: Acetaminophen 325 MG TABLET PO PRN (20:10)
[2017-11-01] MEDS: Ipratropium/Albuterol Neb 3 ML IH SCH ×6 (03:46→23:01)
[2017-11-01] MEDS: methylPREDNISolone 125 MG/2 ML VIAL IVP SCH ×2 (05:17→18:06)
[2017-11-01] MEDS: Nicotine 21 MG PATCH.TD24 TD SCH (08:47)
[2017-11-01] MEDS: Insulin LISPRO 300 UNITS/3 ML VIAL SQ SCH ×4 (08:47→22:02)
[2017-11-01] MEDS: Azithromycin 250 MG TABLET PO SCH (08:48)
[2017-11-01] MEDS: Benzonatate 100 MG CAPSULE PO SCH ×3 (08:48→22:04)
--- NOTE | 2017-11-01 09:15 | Internal Med Progress Note ---
<Jazmine Smith - Last Filed: 11/01/17 14:55> Hospitalist Progress Note - Encounter Date of Encounter: 11/01/17 Time of Encounter: 09:45 - Exam Vitals: Temp Pulse Resp BP Pulse Ox 97.9 F 100 18 168/99 94 11/01/17 11:46 11/01/17 11:46 11/01/17 11:46 11/01/17 11:46 11/01/17 11:46 - Assessment and Plan (1) COPD exacerbation Current Visit: Yes Status: Acute (2) DMII (diabetes mellitus, type 2) Current Visit: Yes Status: Chronic (3) Hypothyroid Current Visit: Yes Status: Chronic (4) Tobacco abuse Current Visit: Yes Status: Acute - Time Spent with Patient Total time spent is greater than 50% in coordination of care (as documented) at patient's floor/unit and/or counseling patient: Internal Medicine: Result - Labs CBC & Chem 7: 10/31/17 06:58 10/31/17 06:58 Consult Discharge Plan - Plan Referrals: Melissa Swift DO [Primary Care Provider] - - Attending Attestation I saw evaluated and examined this patient and my medical decision-making was reviewed with the Resident Physician, Napoleon Cooper. I agree with the documented findings, disposition and treatment plan as described except to any changes set forth below. We independently had [id number] contact with the patient. Patient feels somewhat better today. She is breathing better while at rest but gets dyspneic with ambulation. She denies any chest pain or palpitations. on examination, patient continues to have bilateral wheezing on the she does have improved air entry bilaterally. Heart sounds are normal. Patient does appear anxious. COPD exacerbation: Continue bronchodilators and steroids. Monitor vital signs. Continue O2 supplementation as needed. Will start Symbicort. utility worker consult to help arrange for patient's medications. She will need to follow up with pulmonology when she is discharged. Also will need prescription for nebulizers at home. Diabetes mellitus type 2: Monitor blood sugars. Currently elevated. Will increase insulin regimen. <Napoleon Cooper - Last Filed: 11/01/17 16:46> Hospitalist Progress Note - Encounter Date of Encounter: 11/01/17 - Subjective Interval History: Ms. Kirkland is a 42 y.o female with a PMHx of HTN, DM who has been admitted to the floor because of worsening SOB. Patient endorses that she was recently admitted for acute bronchitis and was prescribed azithromycin and steroid taper on discharge on 11/01. However, patient felt acute SOB on wednesday morning , without any productive cough and drove back to the ED for fear of getting worse . Patient was diagnosed with COPD 7 yrs ago but she doesn't take any inhalers at home. She endorses she doesn't have enough resources to get her inhalers and medications. Patient denies any systemic signs like fever, chills, chest pain, diarrhea, vomiting, nausea. - Exam Vitals: Temp Pulse Resp BP Pulse Ox 97.9 F 97 17 171/119 95 11/01/17 08:00 11/01/17 08:00 11/01/17 08:00 11/01/17 08:11/01/17 08:00 Exam: General: Patient is alert, no acute distress, oriented x 3 Respiratory: b/ l wheezing , no rales or ronchi Cardiovascular: Regular rate and rhythm. s1 and s2 normal No clicks, rubs, gallops, or murmurs. No pedal edema Abdomen: Abdomen is soft, nontender. Bowel sounds are present Musculoskeletal: Spontaneously moving all extremities Skin: warm, dry, intact. Neuro: Alert oriented x 3 normal cranial nerves, no focal deficits - Assessment and Plan (1) COPD exacerbation Current Visit: Yes Status: Acute Assessment and Plan: - Secondary to her Hx of smoking 1/2 pack a day. Patient was recently admitted for AECOPD and discharged on azithromycin and prednisone taper . It seems that the patient doesn't have enough resources to afford her inhalers and meds - Her CXR was negative for any lung infiltrates. - Patient endorses SOB but denies any productive cough or sputum production. on physical exam she has wheezing no tactile fremitus or egophony was appreciated - duonebs PRN, Symbicort 2 puffs BID, Azithromycin, Steroids. Continue to monitor (2) DMII (diabetes mellitus, type 2) Current Visit: Yes Status: Chronic Assessment and Plan: - patient has a Hx of DM2 - currently on medium dose SSI, added determir 10units - continue Accu checks, goal glucose 130-180 (3) Hypothyroid Current Visit: Yes Status: Chronic Assessment and Plan: - patient has a known Hx of hypothyroidism - continue on her home medications - Time Spent with Patient Total time spent is greater than 50% in coordination of care (as documented) at patient's floor/unit and/or counseling patient: Internal Medicine: Result - Labs CBC & Chem 7: 10/31/17 06:58 10/31/17 06:58 <Jazmine Smith - Last Filed: 11/01/17 14:55> (2) DMII (diabetes mellitus, type 2) Qualifiers: Diabetes mellitus remote computer terminal operator insulin use: without remote computer terminal operator use Diabetes mellitus complication status: without complication Qualified Code(s): E11.9 - Type 2 diabetes mellitus without complications (3) Hypothyroid Qualifiers: Hypothyroidism type: acquired Qualified Code(s): E03.9 - Hypothyroidism, unspecified <Napoleon Cooper - Last Filed: 11/01/17 16:46> (2) DMII (diabetes mellitus, type 2) Qualifiers: Diabetes mellitus remote computer terminal operator insulin use: without remote computer terminal operator use Diabetes mellitus complication status: without complication Qualified Code(s): E11.9 - Type 2 diabetes mellitus without complications (3) Hypothyroid Qualifiers: Hypothyroidism type: acquired Qualified Code(s): E03.9 - Hypothyroidism, unspecified
[2017-11-01] MEDS: Acetaminophen 325 MG TABLET PO PRN (09:43)
[2017-11-01] MEDS: clonazePAM 0.5 MG TABLET PO PRN (12:10)
[2017-11-01] MEDS: Insulin DETEMIR 100 UNIT/ML X5UNITS SQ SCH ×2 (18:31→22:05)
[2017-11-01] MEDS: Budesonide/Formoterol 80/4.5 MDI IH SCH (19:52)
[2017-11-02] MEDS ORDERED: GuaiFENesin Liq 200 MG/10 ML UDC PO PRN (00:23)
[2017-11-02] MEDS: Ipratropium/Albuterol Neb 3 ML IH SCH ×4 (03:47→15:58)
[2017-11-02 04:37] LABS: Basophils # 0.2 K/mcL (0.0-0.2); Basophils % 0.9 %; Eosinophils % 0.1 %; Hematocrit 47.1 % (35.3-44.9); Immature Granulocytes % 4.9 % (0-4); Lymphocytes # 1.7 K/mcL (0.6-4.6); Mean Corpuscular HGB Conc 33.5 g/dL (31.6-35.5); Mean Corpuscular Hemoglobin 30.7 pg (28.0-33.3); Mean Corpuscular Volume 91.5 fL (83.0-100.0); Mean Platelet Volume 10.6 fL (9.4-12.4); Monocytes # 0.8 K/mcL (0.0-1.3); Monocytes % 4.2 %; Neutrophils # 15.2 K/mcL (1.6-8.9); Platelet Count 296 K/mcL (140-400); Red Blood Count 5.15 M/mcL (3.82-4.97); Red Cell Distribution Width 13.9 % (11.5-14.5); Segmented Neutrophils % 80.9 %
[2017-11-02 04:40] LABS: Hemoglobin 15.8 g/dL (11.5-15.4)
[2017-11-02] MEDS: methylPREDNISolone 125 MG/2 ML VIAL IVP SCH (06:15)
[2017-11-02] MEDS: Budesonide/Formoterol 80/4.5 MDI IH SCH (07:32)
[2017-11-02] MEDS: Nicotine 21 MG PATCH.TD24 TD SCH (08:55)
[2017-11-02] MEDS: Insulin LISPRO 300 UNITS/3 ML VIAL SQ SCH ×2 (08:55→12:21)
[2017-11-02] MEDS: Benzonatate 100 MG CAPSULE PO SCH ×2 (08:56→14:26)
[2017-11-02] MEDS: Azithromycin 250 MG TABLET PO SCH (08:56)
[2017-11-02] MEDS ORDERED: predniSONE 20 MG TABLET PO SCH ×2 (09:00→18:00)
[2017-11-02] MEDS: hydrALAZINE 25 MG TABLET PO SCH ×2 (09:54→12:21)
[2017-11-02] MEDS: clonazePAM 0.5 MG TABLET PO PRN (12:12)
[2017-11-02 12:13] VITALS: BP 152/83
--- NOTE | 2017-11-02 14:45 | Discharge Summary ---
<Napoleon Cooper - Last Filed: 11/02/17 17:58> Date of Encounter: 11/02/17 Time of Encounter: 09:00 - Discharge Diagnosis (1) COPD exacerbation Priority: Primary Status: Acute (2) DMII (diabetes mellitus, type 2) Priority: Secondary Status: Chronic Qualifiers: Diabetes mellitus residential insulin use: without residential use Diabetes mellitus complication status: without complication Qualified Code(s): E11.9 - Type 2 diabetes mellitus without complications (3) Hypothyroid Priority: Secondary Status: Chronic Qualifiers: Hypothyroidism type: acquired Qualified Code(s): E03.9 - Hypothyroidism, unspecified Hospital course: Ms. Kirkland is a 42 y.o female with a PMHx of HTN, DM who was admitted to the floor because of worsening SOB. Patient endorses that she was recently admitted for acute bronchitis and was prescribed azithromycin and steroid taper on discharge on 11/01. However, patient felt acute SOB on wednesday morning, without any productive cough and drove back to the ED for fear of getting worse . Patient was diagnosed with COPD 7 yrs ago but she doesn't take any inhalers at home. She endorses she doesn't have enough resources to get her inhalers and medications. Patient denies any systemic signs like fever, chills, chest pain, diarrhea, vomiting, nausea. She was treated for COPD exacerbation. She was given DuoNeb's, Symbicort, Z-Tony. Patient has been discharged on total of 7 day course of Z-Tony and prednisone taper starting at 60 mg. She is also been given Good Rx coupons for getting Airduo and duonebs. - Time Spent with Patient Total time spent providing and/or coordinating discharge services: - Discharge Medications Prescriptions: Azithromycin [Zithromax] 500 mg PO ONCE #4 tablet Budesonide/Formoterol 80/4.5 [Symbicort 80/4.5] 2 puff IH BIDR #1 inhaler Home Medications: Levothyroxine [Synthroid] 50 mcg PO DAILY 04/03/17 [History] Albuterol Sulfate [Albuterol Inhaler] 2 puff IH Q4HR #1 hfa.aer.ad 10/27/17 [Rx] HydrOXYzine 10 mg PO HS PRN 10/28/17 [History] Lisinopril [Zestril] 10 mg PO DAILY 10/28/17 [History] Metformin HCl [Metformin HCl ER] 500 mg PO QPM 10/28/17 [History] [place]-3S/Dha/Epa/Fish Oil [Fish Oil 1,200 mg Softgel] 1 cap PO DAILY 10/28/17 [ History] Raspberry Ketone [Raspberry Ketones] 100 mg PO DAILY 10/28/17 [History] Turmeric Root Extract [Turmeric] 500 mg PO DAILY 10/28/17 [History] Azithromycin [Azithromycin 6-Tab Pack] 250 mg PO PER PKG DI #6 tab 10/29/17 [Rx] Benzonatate [Tessalon] 100 mg PO TID 14 Days #42 capsule 10/29/17 [Rx] Nicotine Patch [Nicoderm] 21 mg TD DAILY 30 Days #30 patch 10/29/17 [Rx] predniSONE [PredniSONE] 40 mg PO DAILY 5 Days #10 tablet 10/29/17 [Rx] Azithromycin [Zithromax] 500 mg PO ONCE #4 tablet 11/02/17 [Rx] Budesonide/Formoterol 80/4.5 [Symbicort 80/4.5] 2 puff IH BIDR #1 inhaler 11/02 [Rx] Allergies/Adverse Reactions: 3 Allergy/AdvReac Type Severity Reaction Status Date / Time aspirin Allergy See Verified 07/06/17 19:37 Comments egg Allergy Vomiting Verified 10/28/17 09:15 Penicillins Allergy See Verified 07/06/17 19:37 Comments raw onions Allergy Swelling Uncoded 10/28/17 09:16 of Lip/Tongue/Throat Date of admission: 10/31/17 00:11 Primary care physician: Fabien Erickson Consults: 10/31/17 06:25 Consult to Nurse Navigator [CONS] Routine Comment: - Constitutional Vitals: Temp Pulse Resp BP Pulse Ox 97.8 F 101 16 152/83 95 11/02/17 12:12 11/02/17 12:12 11/02/17 12:12 11/02/17 12:12 11/02/17 12:12 General appearance: Present: cooperative, A&O X 3, answers questions appropriately Exam: General: Patient is alert, no acute distress, oriented x 3 Respiratory: mild b/l wheezing , no rales or ronchi Cardiovascular: Regular rate and rhythm. s1 and s2 normal No clicks, rubs, gallops, or murmurs. No pedal edema Abdomen: Abdomen is soft, nontender. Bowel sounds are present Musculoskeletal: Spontaneously moving all extremities Skin: warm, dry, intact. Neuro: Alert oriented x 3 normal cranial nerves, no focal deficits - Patient Status Disposition: Home, Self-Care Condition: Fair Overall status at discharge: patient is progressing back to baseline - Discharge Instructions Instructions: Azithromycin (By mouth), Budesonide/Formoterol (By breathing), Chronic Obstructive Pulmonary Disease (DC) Follow Up With: Melissa Swift DO [Primary Care Provider] - 11/08/17 9:30 am (Please follow up as schedule....) Additional Instructions: - Take 60 mg prednisone for 3 days, 50 mg for next 3 days, 40 for next 3 days, 30 for next 3 days 20 for next 3 days and then 10 for next 3 days. - try cut down on cigarette smoking. Uses nicotine patch to prevent withdrawals. - Cut down on high salt diet. -Follow up with pulmonology as an outpatient for PFTs once she has insurance coverage. -Take Airduo 2 puffs twice a day - take duonebs as needed - Diet and Activity Activity: increase activity as tolerated Diet: low fat, low cholesterol, low salt diet <Irwin Epstein - Last Filed: 11/02/17 18:19> Date of Encounter: 11/02/17 - Discharge Diagnosis (1) DMII (diabetes mellitus, type 2) Status: Chronic Qualifiers: Diabetes mellitus oil heaterman insulin use: without oil heaterman use Diabetes mellitus complication status: without complication Qualified Code(s): E11.9 - Type 2 diabetes mellitus without complications (2) Hypothyroid Status: Chronic Qualifiers: Hypothyroidism type: acquired Qualified Code(s): E03.9 - Hypothyroidism, unspecified (3) Tobacco abuse Priority: Secondary Status: Chronic (4) COPD exacerbation Status: Acute Hospital course: Ms. Kirkland is a 42 year old female - Time Spent with Patient Total time spent providing and/or coordinating discharge services: Date of admission: 10/31/17 00:11 Primary care physician: Fabien Erickson Consults: 10/31/17 06:25 Consult to Nurse Navigator [CONS] Routine Comment: - Constitutional Vitals: Temp Pulse Resp BP Pulse Ox 97.8 F 101 18 152/83 96 11/02/17 12:12 11/02/17 12:12 11/02/17 16:00 11/02/17 12:12 11/02/17 16:00 - Attending Attestation I examined this patient and my medical decision-making was reviewed with the Resident Physician on 11/02/17. I agree with the documented findings, disposition and treatment plan as described except to the extent set forth below. Ms Kirkland has been in observation for COPD exacerbation. She is doing better with addition of Symbicort. She is now afebrile and ready for discharge home. Exam alert Comfortable at rest Mucus membranes dry Heart reg No wheeze now Abd soft No edema Plan D/C home today Given prescription for generic Advair (runs about 50 dollars) She will apply for assistance for Symbicort Nebulizer and aerosols written Follow up with PCP.
[2017-11-03] MEDS ORDERED: predniSONE 20 MG TABLET PO SCH (09:00)
--- NOTE | 2017-11-04 14:43 | Electrocardiograph Report ---
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
== END 2017-11-02 16:19 | disposition home or self-care (01) ==
LOC: EMEROOARM 20:10 → 2ANU 20:10 → SUATTDRO 10-31 00:11 → 2ANU 10-31 00:26
PROVIDERS: ADMIT Family Medicine; ATTEND Internal Medicine

== ENCOUNTER 2019-10-30 18:43 | Observation (INO) ==
[2019-10-30] MEDS ORDERED: Promethazine 12.5 MG in 0.9 % Sodium Chloride 50 ML IVPB ONE (19:03)
[2019-10-30] MEDS ORDERED: *HR* HYDROmorphone (PF) 1 MG/ML SYRINGE IVP ONE (19:03)
[2019-10-30] MEDS ORDERED: *HR* Promethazine 25 MG/ML VIAL IVP ONE (19:06)
[2019-10-30 20:02] LABS: Basophils # 0.1 K/mcL (0.0-0.2); Basophils % 0.7 %; Eosinophils # 0.3 K/mcL (0.0-0.6); Eosinophils % 2.5 %; Hematocrit 46.5 % (35.3-44.9); Hemoglobin 15.1 g/dL (11.5-15.4); Immature Granulocytes % 0.6 % (0-4); Lymphocytes # 2.9 K/mcL (0.6-4.6); Lymphocytes % 25.7 %; Mean Corpuscular HGB Conc 32.5 g/dL (31.6-35.5); Mean Corpuscular Hemoglobin 30.4 pg (28.0-33.3); Mean Corpuscular Volume 93.8 fL (83.0-100.0); Mean Platelet Volume 10.8 fL (9.4-12.4); Monocytes # 0.7 K/mcL (0.0-1.3); Monocytes % 6.1 %; Neutrophils # 7.3 K/mcL (1.6-8.9); Platelet Count 273 K/mcL (140-400); Red Blood Count 4.96 M/mcL (3.82-4.97); Red Cell Distribution Width 13.8 % (11.5-14.5); Segmented Neutrophils % 64.4 %; White Blood Count 11.3 K/mcL (4.3-11.1)
[2019-10-30 20:19] LABS: Alanine Aminotransferase 15 Units/L (7-52); Albumin 4.2 g/dL (3.5-5.7); Albumin/Globulin Ratio 1.4 (1.1-2.2); Alkaline Phosphatase 67 Units/L (34-104); Aspartate Amino Transferase 12 Units/L (13-39); BUN/Creatinine Ratio 17 (6-26); Bilirubin,Direct 0.1 mg/dL (0.0-0.2); Bilirubin,Indirect 0.3 mg/dL (0.0-1.0); Bilirubin,Total 0.4 mg/dL (0.3-1.0); Blood Urea Nitrogen 11 mg/dL (6-20); Calcium 9.4 mg/dL (8.6-10.3); Carbon Dioxide 25 mEq/L (23-29); Chloride 107 mEq/L (98-107); Globulin 2.9 g/dL (2.4-3.5); Glucose 174 mg/dL (70-105); Lipase 298 Units/L (11-82); Osmolality,Calculated 294 (280-300); Potassium 3.6 mEq/L (3.5-5.1); Sodium 140 mEq/L (136-145); Total Protein 7.1 g/dL (6.4-8.9); Troponin I < 0.03 ng/mL (< 0.04); eGFR For African Americans > 60 (> 60); eGFR For Non-African Americans > 60 (> 60)
[2019-10-30] MEDS ORDERED: 0.9 % Sodium Chloride 1,000 ML IVC ONE (20:39)
[2019-10-30] MEDS ORDERED: Naloxone 0.4 MG/ML INJ IVP PRN (21:07)
[2019-10-30] MEDS ORDERED: Ringers Solution, Lactated 1,000 ML IVC SCH (21:15)
[2019-10-30 21:26] LABS: Bacteria,Urine Few per hpf (None-Few); Bilirubin,Urine Negative (Negative); Blood,Urine Moderate (Negative); Clarity,Urine Turbid (Clear); Color,Urine Yellow (Yellow); Glucose,Urine (UA) Normal (Normal); Ketones,Urine Trace mg/dL (Negative); Leukocyte Esterase,Urine Negative (Negative); Mucus,Urine Few per lpf (None-Few); Nitrite,Urine Negative (Negative); Protein,Urine 100 mg/dL (Neg-Trace); RBC,Urine 50-100 per hpf (0-3); Specific Gravity,Urine > 1.030 (1.010-1.025); Squamous Epithelial Cell,Urine Moderate per hpf (None-Few); WBC,Urine 0-3 per hpf (0-3)
[2019-10-30] MEDS ORDERED: Dextrose Gel 15 GM/37.5 ML TUBE PO PRN ×2 (21:33)
[2019-10-30] MEDS ORDERED: D5% in Water 1,000 ML IVC PRN (21:33)
[2019-10-30] MEDS ORDERED: *HR* Dextrose 50 % in Water (Vial) 50 ML VIAL IVP PRN (21:33)
[2019-10-31] MEDS ORDERED: Benzonatate 100 MG CAPSULE PO PRN (01:06)
[2019-10-31] MEDS ORDERED: Ipratropium/Albuterol Neb 3 ML IH PRN (01:07)
[2019-10-31] MEDS: Insulin LISPRO 300 UNITS/3 ML VIAL SQ SCH ×4 (01:53→16:33)
[2019-10-31] MEDS ORDERED: *HR* HYDROmorphone (PF) 1 MG/ML SYRINGE IVP ONE (01:58)
[2019-10-31] MEDS: Ipratropium 1 PUFF INHALER IH PRN ×2 (02:44→17:49)
[2019-10-31] MEDS: *HR* Promethazine 25 MG/ML VIAL IVP PRN ×3 (03:43→22:45)
[2019-10-31 06:56] LABS: Basophils # 0.1 K/mcL (0.0-0.2); Basophils % 0.7 %; Eosinophils # 0.3 K/mcL (0.0-0.6); Eosinophils % 3.2 %; Hematocrit 43.7 % (35.3-44.9); Hemoglobin 14.1 g/dL (11.5-15.4); Immature Granulocytes % 0.3 % (0-4); Lymphocytes # 3.4 K/mcL (0.6-4.6); Lymphocytes % 37.5 %; Mean Corpuscular HGB Conc 32.3 g/dL (31.6-35.5); Mean Corpuscular Hemoglobin 30.5 pg (28.0-33.3); Mean Corpuscular Volume 94.4 fL (83.0-100.0); Mean Platelet Volume 10.6 fL (9.4-12.4); Monocytes # 0.7 K/mcL (0.0-1.3); Monocytes % 7.3 %; Neutrophils # 4.6 K/mcL (1.6-8.9); Platelet Count 229 K/mcL (140-400); Red Blood Count 4.63 M/mcL (3.82-4.97)
[2019-10-31 07:05] LABS: INR 1.1; Prothrombin Time 12.2 Seconds (9.4-12.1)
[2019-10-31 07:18] LABS: BUN/Creatinine Ratio 16 (6-26); Blood Urea Nitrogen 9 mg/dL (6-20); Calcium 8.4 mg/dL (8.6-10.3); Carbon Dioxide 25 mEq/L (23-29); Chloride 109 mEq/L (98-107); Chol/HDL Ratio 5.6 (0-4.9); Cholesterol 139 mg/dL (< 200); Glucose 103 mg/dL (70-105); HDL Cholesterol 25 mg/dL (40-59); LDL Cholesterol,Calculated 87 mg/dL (< 100); Magnesium 1.8 mg/dL (1.6-2.6); Osmolality,Calculated 291 (280-300); Potassium 3.5 mEq/L (3.5-5.1); Sodium 141 mEq/L (136-145); Triglycerides 134 mg/dL (< 150); eGFR For African Americans > 60 (> 60); eGFR For Non-African Americans > 60 (> 60)
[2019-10-31] MEDS: *HR* Enoxaparin 40 MG/0.4 ML SYRINGE SQ SCH (07:42)
[2019-10-31] MEDS: Nicotine 21 MG PATCH.TD24 TD SCH (07:43)
[2019-10-31] MEDS: Ondansetron 4 MG/2 ML VIAL IVP PRN ×2 (08:26→18:54)
[2019-10-31] MEDS: Venlafaxine XR (24 HR) 75 MG CAP.ER.24H PO SCH (08:26)
[2019-10-31] MEDS: lisinopriL 10 MG TABLET PO SCH (08:26)
[2019-10-31] MEDS: Ringers Solution, Lactated 1,000 ML IVC SCH ×2 (08:27→18:54)
[2019-10-31] MEDS: *HR* HYDROmorphone (PF) 1 MG/ML SYRINGE IVP PRN ×2 (10:25→18:54)
[2019-10-31] MEDS ORDERED: Acetaminophen 325 MG TABLET PO PRN (13:56)
[2019-10-31] MEDS: Pantoprazole 40 MG VIAL IVP SCH (14:58)
[2019-10-31] MEDS ORDERED: Insulin LISPRO 300 UNITS/3 ML VIAL SQ SCH (21:00)
[2019-10-31] MEDS ORDERED: Insulin DETEMIR 100 UNIT/ML X5UNITS SQ SCH (21:00)
[2019-11-01 03:26] LABS: Basophils % 0.5 %; Eosinophils # 0.2 K/mcL (0.0-0.6); Eosinophils % 2.3 %; Hematocrit 42.3 % (35.3-44.9); Hemoglobin 13.5 g/dL (11.5-15.4); Immature Granulocytes % 0.5 % (0-4); Lymphocytes # 2.7 K/mcL (0.6-4.6); Lymphocytes % 31.9 %; Mean Corpuscular HGB Conc 31.9 g/dL (31.6-35.5); Mean Corpuscular Hemoglobin 30.1 pg (28.0-33.3); Mean Corpuscular Volume 94.4 fL (83.0-100.0); Mean Platelet Volume 10.1 fL (9.4-12.4); Monocytes # 0.5 K/mcL (0.0-1.3); Monocytes % 6.3 %; Neutrophils # 4.9 K/mcL (1.6-8.9); Platelet Count 224 K/mcL (140-400); Red Blood Count 4.48 M/mcL (3.82-4.97); Red Cell Distribution Width 13.8 % (11.5-14.5); Segmented Neutrophils % 58.5 %; White Blood Count 8.4 K/mcL (4.3-11.1)
[2019-11-01 03:42] LABS: BUN/Creatinine Ratio 13 (6-26); Blood Urea Nitrogen 8 mg/dL (6-20); Calcium 8.1 mg/dL (8.6-10.3); Carbon Dioxide 26 mEq/L (23-29); Chloride 108 mEq/L (98-107); Glucose 139 mg/dL (70-105); Magnesium 1.6 mg/dL (1.6-2.6); Osmolality,Calculated 289 (280-300); Phosphorous 3.6 mg/dL (2.7-4.5); Potassium 4.3 mEq/L (3.5-5.1); Sodium 139 mEq/L (136-145); eGFR For African Americans > 60 (> 60); eGFR For Non-African Americans > 60 (> 60)
[2019-11-01] MEDS: Ondansetron 4 MG/2 ML VIAL IVP PRN (05:35)
[2019-11-01] MEDS: *HR* Enoxaparin 40 MG/0.4 ML SYRINGE SQ SCH (05:35)
[2019-11-01] MEDS: Pantoprazole 40 MG VIAL IVP SCH (08:44)
[2019-11-01] MEDS: Venlafaxine XR (24 HR) 75 MG CAP.ER.24H PO SCH (08:45)
[2019-11-01] MEDS: lisinopriL 10 MG TABLET PO SCH (08:45)
[2019-11-01] MEDS: Insulin LISPRO 300 UNITS/3 ML VIAL SQ SCH ×2 (08:45→12:56)
[2019-11-01] MEDS: Nicotine 21 MG PATCH.TD24 TD SCH (08:46)
[2019-11-01 10:52] VITALS: BP 144/93
== END 2019-11-01 16:44 | disposition home or self-care (01) ==
LOC: EMEROOARM 18:43 → 2NENU 18:43 → SUATTDRO 21:15 → 2NENU 21:58 → 3ANU 10-31 15:16
PROVIDERS: ADMIT Internal Medicine; ATTEND Internal Medicine

== ENCOUNTER 2021-04-29 18:29 | Observation (INO) ==
[2021-04-29 18:54] LABS: Bilirubin,Urine Negative (Negative); Blood,Urine Small (Negative); Clarity,Urine Clear (Clear); Color,Urine Light-Yellow (Yellow); Glucose,Urine (UA) Normal (Normal); Ketones,Urine Negative (Negative); Leukocyte Esterase,Urine Negative (Negative); Mucus,Urine Few per lpf (None-Few); Nitrite,Urine Negative (Negative); PH,Urine 6.5 pH Units (5.0-8.0); Protein,Urine 30 mg/dL (Neg-Trace); Specific Gravity,Urine 1.018 (1.010-1.025); Squamous Epithelial Cell,Urine Few per hpf (None-Few); Urobilinogen,Urine Normal (Normal); WBC,Urine 0-3 per hpf (0-3)
[2021-04-29] MEDS ORDERED: 0.9 % Sodium Chloride 1,000 ML IVC ONE (20:13)
[2021-04-29] MEDS ORDERED: Ketorolac 30 MG/ML VIAL IVP ONE (20:13)
[2021-04-29] MEDS ORDERED: Ondansetron 4 MG/2 ML VIAL IVP ONE ×2 (20:13→21:24)
[2021-04-29 20:57] LABS: Basophils # 0.1 K/mcL (0.0-0.2); Basophils % 0.7 %; Eosinophils # 0.3 K/mcL (0.0-0.6); Eosinophils % 2.2 %; Hematocrit 44.9 % (35.3-44.9); Hemoglobin 14.8 g/dL (11.5-15.4); Immature Granulocytes % 0.5 % (0-4); Lymphocytes # 3.2 K/mcL (0.6-4.6); Lymphocytes % 25.3 %; Mean Corpuscular Hemoglobin 30.6 pg (28.0-33.3); Mean Platelet Volume 10.4 fL (9.4-12.4); Monocytes # 0.8 K/mcL (0.0-1.3); Monocytes % 5.9 %; Neutrophils # 8.4 K/mcL (1.6-8.9); Platelet Count 255 K/mcL (140-400); Red Blood Count 4.83 M/mcL (3.82-4.97); Red Cell Distribution Width 13.9 % (11.5-14.5); Segmented Neutrophils % 65.4 %; White Blood Count 12.8 K/mcL (4.3-11.1)
[2021-04-29 21:18] LABS: Alanine Aminotransferase 14 Units/L (7-52); Albumin 3.7 g/dL (3.5-5.7); Albumin/Globulin Ratio 1.4 (1.1-2.2); Alkaline Phosphatase 71 Units/L (34-104); Amylase 69 Units/L (29-103); Aspartate Amino Transferase 10 Units/L (13-39); BUN/Creatinine Ratio 22 (6-26); Bilirubin,Indirect 0.3 mg/dL (0.0-1.0); Bilirubin,Total 0.3 mg/dL (0.3-1.0); Blood Urea Nitrogen 15 mg/dL (6-20); Calcium 8.9 mg/dL (8.6-10.3); Carbon Dioxide 27 mEq/L (23-29); Chloride 106 mEq/L (98-107); Globulin 2.7 g/dL (2.4-3.5); Glucose 162 mg/dL (70-105); Lipase 375 Units/L (11-82); Osmolality,Calculated 294 (280-300); Potassium 3.7 mEq/L (3.5-5.1); Sodium 140 mEq/L (136-145); Total Protein 6.4 g/dL (6.4-8.9); eGFR For African Americans > 60 (> 60); eGFR For Non-African Americans > 60 (> 60)
[2021-04-29] MEDS ORDERED: Ketorolac 30 MG/ML VIAL IVP STA (22:44)
[2021-04-29] MEDS ORDERED: Ringers Solution, Lactated 1,000 ML IVC SCH (23:45)
[2021-04-29] MEDS ORDERED: Naloxone 0.4 MG/ML INJ IVP PRN (23:47)
[2021-04-29] MEDS ORDERED: Melatonin 3 MG TABLET PO PRN (23:47)
[2021-04-29] MEDS ORDERED: Morphine PCA 30 MG/ 30 ML 30 ML PCA.VIAL IVC PRN (23:50)
[2021-04-30] MEDS ORDERED: Ipratropium/Albuterol Neb 3 ML IH PRN (00:06)
[2021-04-30] MEDS ORDERED: D5% in Water 1,000 ML IVC PRN (00:07)
[2021-04-30] MEDS ORDERED: *HR* Dextrose 50 % in Water (Syg) 50 ML SYRINGE IVP PRN (00:07)
[2021-04-30] MEDS ORDERED: Dextrose 4 GM Chewable Tablets PO PRN ×2 (00:07)
[2021-04-30] MEDS: Lisinopril-HCTZ 20-12.5mg TABLET PO SCH ×3 (01:07→19:43)
[2021-04-30] MEDS: Ringers Solution, Lactated 1,000 ML IV SCH ×2 (02:00→06:35)
[2021-04-30] MEDS ORDERED: Naloxone 0.4 MG/ML INJ IVP PRN (02:20)
[2021-04-30 05:29] LABS: Basophils # 0.1 K/mcL (0.0-0.2); Basophils % 0.6 %; Eosinophils # 0.3 K/mcL (0.0-0.6); Eosinophils % 2.3 %; Hemoglobin 13.8 g/dL (11.5-15.4); Immature Granulocytes % 0.6 % (0-4); Lymphocytes # 3.3 K/mcL (0.6-4.6); Lymphocytes % 30.3 %; Mean Corpuscular HGB Conc 32.9 g/dL (31.6-35.5); Mean Corpuscular Hemoglobin 31.1 pg (28.0-33.3); Mean Corpuscular Volume 94.6 fL (83.0-100.0); Mean Platelet Volume 10.7 fL (9.4-12.4); Monocytes # 0.6 K/mcL (0.0-1.3); Monocytes % 5.5 %; Neutrophils # 6.6 K/mcL (1.6-8.9); Platelet Count 243 K/mcL (140-400); Red Blood Count 4.44 M/mcL (3.82-4.97); Red Cell Distribution Width 13.9 % (11.5-14.5); Segmented Neutrophils % 60.7 %; White Blood Count 10.8 K/mcL (4.3-11.1)
[2021-04-30 05:45] LABS: Alanine Aminotransferase 15 Units/L (7-52); Albumin 3.2 g/dL (3.5-5.7); Albumin/Globulin Ratio 1.3 (1.1-2.2); Alkaline Phosphatase 63 Units/L (34-104); Aspartate Amino Transferase 16 Units/L (13-39); BUN/Creatinine Ratio 21 (6-26); Bilirubin,Total 0.4 mg/dL (0.3-1.0); Blood Urea Nitrogen 12 mg/dL (6-20); Calcium 8.1 mg/dL (8.6-10.3); Carbon Dioxide 23 mEq/L (23-29); Chloride 109 mEq/L (98-107); Chol/HDL Ratio 4.6 (0-4.9); Cholesterol 132 mg/dL (< 200); Globulin 2.4 g/dL (2.4-3.5); Glucose 116 mg/dL (70-105); HDL Cholesterol 29 mg/dL (40-59); LDL Cholesterol,Calculated 84 mg/dL (< 100); Magnesium 1.5 mg/dL (1.6-2.6); Osmolality,Calculated 289 (280-300); Phosphorous 3.2 mg/dL (2.7-4.5); Potassium 3.6 mEq/L (3.5-5.1); Sodium 139 mEq/L (136-145); Total Protein 5.6 g/dL (6.4-8.9); Triglycerides 95 mg/dL (< 150); eGFR For African Americans > 60 (> 60); eGFR For Non-African Americans > 60 (> 60)
[2021-04-30] MEDS: Insulin LISPRO 300 UNITS/3 ML VIAL SUBQ SCH ×4 (06:38→23:17)
[2021-04-30 08:05] LABS: Estimated Average Glucose 151 mg/dl; Hemoglobin A1C 6.9 %
[2021-04-30] MEDS: Ringers Solution, Lactated 1,000 ML IVC SCH ×2 (12:40→19:44)
[2021-04-30] MEDS ORDERED: *HR* Metoprolol 5 MG/5 ML VIAL IVP ONE (23:01)
[2021-05-01 02:42] VITALS: O2SAT 94
[2021-05-01] MEDS: Insulin LISPRO 300 UNITS/3 ML VIAL SUBQ SCH (05:15)
[2021-05-01 06:37] VITALS: BP 176/96; PULSE 84; TEMP 97.3
== END 2021-05-01 07:48 | disposition left against medical advice (07) ==
LOC: 3BNU 18:29 → EMEROOARM 18:29 → 3BNU 04-30 00:30
PROVIDERS: ADMIT Internal Medicine; ATTEND Internal Medicine

== ENCOUNTER 2021-07-20 21:47 | Observation (INO) ==
[2021-07-20] MEDS ORDERED: 0.9 % Sodium Chloride 1,000 ML IVC ONE (22:39)
[2021-07-20] MEDS ORDERED: Ondansetron 4 MG/2 ML VIAL IVP PRN (22:48)
[2021-07-20] MEDS ORDERED: 0.9 % Sodium Chloride 1,000 ML IV ONE (22:48)
[2021-07-20] MEDS ORDERED: Morphine Sulfate 2 MG/ML SYRINGE IVP ONE (22:48)
[2021-07-20 22:50] LABS: Basophils # 0.1 K/mcL (0.0-0.2); Basophils % 0.7 %; Eosinophils # 0.3 K/mcL (0.0-0.6); Eosinophils % 2.8 %; Hematocrit 42.6 % (35.3-44.9); Hemoglobin 14.1 g/dL (11.5-15.4); Immature Granulocytes % 0.5 % (0-4); Lymphocytes % 32.4 %; Mean Corpuscular HGB Conc 33.1 g/dL (31.6-35.5); Mean Corpuscular Hemoglobin 30.5 pg (28.0-33.3); Mean Corpuscular Volume 92.2 fL (83.0-100.0); Mean Platelet Volume 11.1 fL (9.4-12.4); Monocytes # 0.6 K/mcL (0.0-1.3); Monocytes % 6.2 %; Neutrophils # 5.4 K/mcL (1.6-8.9); Platelet Count 235 K/mcL (140-400); Red Blood Count 4.62 M/mcL (3.82-4.97); Red Cell Distribution Width 13.6 % (11.5-14.5); Segmented Neutrophils % 57.4 %; White Blood Count 9.4 K/mcL (4.3-11.1)
[2021-07-20] MEDS ORDERED: Magic Mouthwash 10 ML UD Cup PO ONE (23:00)
[2021-07-20 23:14] LABS: BUN/Creatinine Ratio 19 (6-26); Blood Urea Nitrogen 12 mg/dL (6-20); Calcium 8.6 mg/dL (8.6-10.3); Carbon Dioxide 25 mEq/L (23-29); Chloride 109 mEq/L (98-107); Glucose 99 mg/dL (70-105); Osmolality,Calculated 294 (280-300); Potassium 3.7 mEq/L (3.5-5.1); Sodium 142 mEq/L (136-145); Troponin I < 0.03 ng/mL (< 0.04); eGFR For African Americans > 60 (> 60); eGFR For Non-African Americans > 60 (> 60)
[2021-07-21 00:52] LABS: Bilirubin,Urine Negative (Negative); Blood,Urine Trace (Negative); Clarity,Urine Clear (Clear); Color,Urine Light-Yellow (Yellow); Glucose,Urine (UA) Normal (Normal); Ketones,Urine Negative (Negative); Leukocyte Esterase,Urine Negative (Negative); Mucus,Urine Few per lpf (None-Few); Nitrite,Urine Negative (Negative); Protein,Urine Trace mg/dL (Neg-Trace); RBC,Urine 0-3 per hpf (0-3); Specific Gravity,Urine 1.016 (1.010-1.025); Squamous Epithelial Cell,Urine Few per hpf (None-Few); Urobilinogen,Urine Normal (Normal); WBC,Urine 0-3 per hpf (0-3)
[2021-07-21 00:55] LABS: Alanine Aminotransferase 17 Units/L (7-52); Albumin 3.6 g/dL (3.5-5.7); Albumin/Globulin Ratio 1.3 (1.1-2.2); Alkaline Phosphatase 69 Units/L (34-104); Aspartate Amino Transferase 17 Units/L (13-39); Bilirubin,Indirect 0.5 mg/dL (0.0-1.0); Bilirubin,Total 0.5 mg/dL (0.3-1.0); Globulin 2.7 g/dL (2.4-3.5); Lipase 9 Units/L (11-82); Total Protein 6.3 g/dL (6.4-8.9)
[2021-07-21 01:32] LABS: INR 1.2
[2021-07-21 01:35] LABS: Activated Partial Thrombo Time 29.2 Seconds (26.0-36.0)
[2021-07-21] MEDS ORDERED: Magic Mouthwash 10 ML UD Cup PO ONE (02:42)
[2021-07-21] MEDS ORDERED: Ringers Solution, Lactated 1,000 ML IVC SCH (03:15)
[2021-07-21] MEDS ORDERED: Morphine Sulfate 2 MG/ML SYRINGE IVP ONE (04:14)
[2021-07-21] MEDS ORDERED: Naloxone 0.4 MG/ML INJ IVP PRN (04:37)
[2021-07-21] MEDS ORDERED: Melatonin 3 MG TABLET PO PRN (04:37)
[2021-07-21] MEDS ORDERED: Ondansetron 4 MG/2 ML VIAL IVP PRN (04:37)
[2021-07-21] MEDS ORDERED: D5% in Water 1,000 ML IVC PRN (06:21)
[2021-07-21] MEDS ORDERED: Dextrose Gel 15 GM/37.5 ML TUBE PO PRN ×2 (06:21)
[2021-07-21] MEDS ORDERED: *HR* Dextrose 50 % in Water (Syg) 50 ML SYRINGE IVP PRN (06:21)
[2021-07-21] MEDS ORDERED: cefTRIAXone 1,000 MG in 0.9 % Sodium Chloride 10 ML IVP ONE (07:00)
[2021-07-21] MEDS ORDERED: Insulin LISPRO 300 UNITS/3 ML VIAL SUBQ SCH ×2 (12:00→21:00)
[2021-07-21] MEDS: Magic Mouthwash 10 ML UD Cup PO SCH ×2 (12:43→17:08)
[2021-07-21] MEDS: Insulin LISPRO 300 UNITS/3 ML VIAL SUBQ SCH (17:08)
[2021-07-22] MEDS ORDERED: Ipratropium/Albuterol Neb 3 ML IH PRN (01:33)
[2021-07-22] MEDS ORDERED: Dexamethasone Sodium Phos/PF 10 MG/ML VIAL IVP ONE (01:45)
[2021-07-22 07:42] VITALS: PULSE 81; TEMP 97.5; O2SAT 96
[2021-07-22] MEDS: Magic Mouthwash 10 ML UD Cup PO SCH (07:45)
[2021-07-22] MEDS: Insulin LISPRO 300 UNITS/3 ML VIAL SUBQ SCH (07:47)
[2021-07-22] MEDS ORDERED: Metoprolol XL (24 HR) Succ 50 MG TAB.ER.24H PO SCH (09:00)
[2021-07-22] MEDS ORDERED: Lisinopril-HCTZ 20-12.5mg TABLET PO SCH (09:00)
[2021-07-22 09:09] VITALS: BP 140/92
== END 2021-07-22 10:35 | disposition home or self-care (01) ==
LOC: 3ANU 21:47 → EMEROOARM 21:47 → SUATTDRO 07-21 03:38 → 3ANU 07-21 04:27
PROVIDERS: ADMIT Family Medicine; ATTEND Internal Medicine